=== PATIENT | female | born 1965 | race Caucasian/White ===

== ENCOUNTER 2021-04-04 11:10 | Outpatient (REF) | payer BC, SELFPAY ==
[2021-04-04 13:24] LABS: MANUAL DIFF FLAG NO
[2021-04-04 13:29] LABS: Basophils Percent Auto 0.4 % (0-2); Eosinophils Absolute Auto 0.1 X10*3/uL (0.0-0.4); Eosinophils Percent Auto 1.7 % (0-4); Hematocrit 43.5 % (37-47); Hemoglobin 13.8 g/dl (12.0-16.0); Imm Gran Abs Auto 0.01 X10*3/uL (0.00-0.03); Imm Gran Pct Auto 0.2 % (0.0-0.4); Lymphocytes Absolute Auto 1.5 X10*3/uL (1.2-4.9); Mean Corpuscular HGB Conc 31.7 g/dl (31.0-35.0); Mean Corpuscular Hemoglobin 27.9 pg (27.0-33.0); Mean Corpuscular Volume 88.1 fL (80-98); Mean Platelet Volume 11.1 fL (9.4-12.3); Monocytes Absolute Auto 0.3 X10*3/uL (0.1-1.2); Monocytes Percent Auto 6.7 % (2-11); Neutrophils Absolute Auto 2.7 X10*3/uL (2.0-8.3); Platelet Count 182 X10*3/uL (160-400); Red Blood Count 4.94 X10*6/uL (4.20-5.50); Red Cell Distribution Width 15.9 % (11.0-16.0); White Blood Count 4.6 X10*3/uL (4.8-10.8)
[2021-04-04 14:08] LABS: Alanine Aminotransferase 22 U/L (0-31); Albumin Level 3.8 g/dL (3.5-5.0); Alkaline Phosphatase 43 U/L (39-117); Anion Gap 12 (12-20); Aspartate Amino Transferase 21 U/L (5-31); Bilirubin Total 0.7 mg/dL (0.0-1.0); Blood Urea Nitrogen 14 mg/dL (9-16); Calcium 9.3 mg/dL (8.4-10.2); Chloride 105 mmol/L (96-108); Cholesterol 196 mg/dL; Estimated Glomerular Filt Rate > 60; Glucose Fasting 95 mg/dL (60-99); HDL Cholesterol 66 mg/dL; LDL Cholesterol Calculated 113 mg/dl; Magnesium 2.1 mg/dL (1.6-2.6); Potassium 3.9 mmol/L (3.3-5.1); Sodium 142 mmol/L (135-145); Total Protein 6.1 g/dL (6.5-8.0); Triglycerides 89 mg/dL
[2021-04-04 14:16] LABS: Carbon Dioxide 29 mmol/L (22-29)
[2021-04-04 14:31] LABS: Vitamin D 25-OH Total 45.4 ng/mL (>30)
[2021-04-04 14:34] LABS: Vitamin B12 654 pg/mL (200-900)
== END 2021-04-04 11:11 | disposition home or self-care (01) ==
LOC: HO.10HDL 11:10
PROVIDERS: Visit Provider Internal Medicine
DX: E78.00 Pure hypercholesterolemia, unspecified (principal); K21.9 Gastro-esophageal reflux disease without esophagitis; M19.90 Unspecified osteoarthritis, unspecified site; R25.2 Cramp and spasm; Z86.711 Personal history of pulmonary embolism
CPT/HCPCS: 36415; 80053; 80061; 82306; 82607; 83735; 85025

== ENCOUNTER → 2021-05-31 07:14 | Outpatient (REF) | payer BC, SELFPAY ==
--- NOTE | 2021-05-31 07:18 | CA_ITS ---
Transthoracic Echocardiogram Patient (Last, First, Middle): Oumou Main N Gender: Female Date of : 1965 Age: 55 Procedure Date: 05/31/2021 Procedure Type: Transthoracic Echocardiogram Location: OP Height: 170.18 cm Weight: 83.92 kg BSA: 1.96 m2 Heart Rate: bpm BP: 130 / 62 mmHg Table Games Dealer: PAIGE Referring MD: Casey Lee MD Hat Blocking Machine Operator: Alejandro Kuo MD Symptoms: CP, PERSONAL HX. OF PULMONARY EMBOLISM Study Quality: Fair ECG Rhythm: Sinus Conclusions: - 1. Normal LV systolic function with impaired relaxation filling pattern 2. Normal cardiac valvular Doppler 3. Normal RV systolic pressure 4. No pericardial effusion Findings Left Ventricle Normal left ventricular size, thickness, and systolic function. The visually estimated ejection fraction is between 60-65%. Spectral Doppler is indicative of an impaired relaxation filling pattern. E/E prime ratio is between 8 and 15 consistent with indeterminate filling pressures. Right Ventricle Normal right ventricular cavity size and systolic function. Atria Both atria are normal in size. There is lipomatous hypertrophy of the interatrial septum. There is no evidence of interatrial shunt. Aortic Valve Normal aortic valve structure and function. There is no aortic valve stenosis. There is no aortic valve regurgitation. Mitral Valve Normal mitral valve structure and function. There is trace mitral valve regurgitation. There is no mitral valve stenosis. Pulmonic Valve The pulmonic valve is likely normal. Tricuspid Valve Normal tricuspid valve structure. There is trace tricuspid valve regurgitation. The right ventricular systolic pressure is normal. The right ventricular systolic pressure is 16 mmHg. Normal right atrial pressure. There is no evidence of pulmonary hypertension. Great Vessels All visible segments of the aorta are normal in size. The pulmonary artery was not well visualized. Venous The inferior vena cava is normal in size and collapses greater than 50% with inspiration. Pericardium/Pleural There is no evidence of pericardial effusion. Prior Study Comparison No previous study in the last 5 years for comparison Measurements 2D Linear Measurements IVSd: 1.03 0.6-0.9/0.6-1.0 cm LVIDd: 3.50 3.9-5.3/4.2-5.9 cm LVIDd Index: 1.79 2.4-3.2/2.2-3.1 cm/m2 LVIDs: 2.34 2.0-3.6 cm LVPWd: 1.05 0.7-1.1 cm Ao Root: 3.50 2.1-3.5 cm LA Diam: 2.70 2.7-3.8/3.0-4.0 cm LAIDs Index: 1.38 1.5-2.3 cm/m2 LV Mass: 136.10 67-162/88-224 g LV Mass Index: 69.44 43-95/49-115 g/m2 LVOT Diam: 2.20 3.0+(-)1.3 cm 2D Systolic Function EF 4C: 63.10 >55% EF 2C: 58.20 >55% EF BiP: 60.40 >55% Mitral Valve MV Pk E: 0.65 MV PK A: 0.72 MV Decel Time: 303.00 E/A: 0.90 E'Lateral: 7.29 E'Medial: 6.31 E/E' Med: 10.30 E/E' Lat: 8.90 PHT: 89.00 MVA PHT: 2.[address] [place]: 2.14 Aortic Valve AoV Pk Izaiah: 1.11 AoV Mn Izaiah: 0.80 AoV VTI: 0.25 AoV Pk Grad: 5.00 Aov Mn Grad: 3.00 REJI Cont.VTI: 2.96 LVOT LVOT Pk Izaiah: 0.77 LVOT Mn Izaiah: 0.54 LVOT VTI: 0.19 LVOT Pk Grad: 2.00 LVOT Mn Grad: 1.00 LVOT Diam: 2.20 LVOT Area: 3.80 Diastolic Function MV Pk E: 0.65 MV Pk A: 0.72 E/A: 0.90 E'Medial: 6.31 E/E' Med: 10.30 E' Laterial: 7.29 E/E' Lat: 8.90 Tricuspid Valve TR Pk Izaiah: 1.79 TR Pk Grad: 13.00 RA Press: 3.00 RVSP: 16.00 Great Vessels Aorta Ao Root-2D: 3.50 2.0-3.7 cm Ao Asc: 3.30 2.1-3.4 cm Ao Arch: 3.10 Updated in Other Vendor System with Status of Final Alejandro Kuo MD electronically signed on 05/31/2021 11:42:23 AM with status of Final
== END ==
LOC: HO.CARD 07:14
PROVIDERS: Visit Provider Internal Medicine
DX: R07.89 Other chest pain (principal); Z86.711 Personal history of pulmonary embolism
CPT/HCPCS: 93306

== ENCOUNTER 2021-08-02 07:23 | Outpatient (REF) | payer BC, SELFPAY ==
--- NOTE | ~2021-08-02 | MM_ITS ---
EXAMINATION: MM SCREENING DIGITAL BREAST TOMOSYNTHESIS, BILATERAL CLINICAL INFORMATION: Screening. Asymptomatic. The lifetime risk of breast cancer based on the Tyrer-Cuzick Model is 7%. COMPARISON: Mammography: 07/27/2020, 09/05/2018, 06/26/2017 TECHNIQUE: Digital breast tomosynthesis is performed in both the craniocaudal and mediolateral oblique views along with computer-aided detection (CAD). Synthesized 2D images are generated from the tomosynthesis. FINDINGS: There are scattered areas of fibroglandular density (ACR BI-RADS breast composition Category b). There are no significant masses, abnormal calcifications, or other abnormalities. Parenchymal pattern is similar to prior exams. No developing density. The axilla and skin contours are unremarkable. MM/MM tomosynthesis screening BI IMPRESSION: No mammographic evidence of malignancy. ASSESSMENT: BI-RADS 1: Negative RECOMMENDATION: Routine annual mammography screening. This patient's information was entered into a reminder system with a target due date for their next mammogram.
== END 2021-08-02 07:24 | disposition home or self-care (01) ==
LOC: HO.MAMMO 07:23
PROVIDERS: PCP Internal Medicine; Visit Provider Internal Medicine
DX: Z12.31 Encounter for screening mammogram for malignant neoplasm of breast (principal)
CPT/HCPCS: 77063; 77067

== ENCOUNTER 2021-08-15 06:27 | Day surgery (SDC) | payer BC, SELFPAY ==
[2021-08-10 11:40] VITALS: BMI 29.9
--- NOTE | 2021-08-14 09:30 | P.CONAN_ITS ---
Documented by User: Alea Rabago NP 08/14/21 09:31 HPI - Anesthesia Eval Consult details Narrative: 55yo F for Upper Endoscopy and Colonoscopy [facility] Past Medical History Medical History (Updated 08/10/21 @ 11:35 by Lesvia Oliveira RN) [place] esophagus DVT (deep venous thrombosis) Elevated cholesterol GERD (gastroesophageal reflux disease) Hiatal hernia Osteoarthritis Pulmonary embolus Rosacea Surgical History Surgical History (Updated 08/10/21 @ 11:30 by Lesvia Oliveira RN) H/O colonoscopy History of esophagogastroduodenoscopy (EGD) History of partial hysterectomy Hx of abdominal surgery Hx of section Hx of laparoscopic gastric banding Hx of rectal sphincterotomy Hx of reduction mammoplasty Hx of umbilical hernia repair S/P insertion of IVC (inferior vena caval) filter Social History Social History Patient Tobacco Use Status: Tobacco use Unknown Advance Directives Information Provided: No Advance Directives on File: No Meds Allergies Allergy/AdvReac Type Severity Reaction Status Date / Time hydrocodone [From Vicodin] AdvReac Mild VOMITING Unverified 08/03/20 17:03 oxycodone [From Percocet] AdvReac Mild VOMITING Unverified 08/03/20 17:03 Home Medications Medication Instructions Recorded Confirmed Last Taken Type aspirin 81 mg tablet 81 mg PO DAILY 08/10/21 08/10/21 Unknown History doxycycline hyclate 50 mg capsule 1 cap PO DAILY 08/10/21 08/10/21 Unknown History esomeprazole magnesium 40 mg 1 cap PO DAILY 08/10/21 08/10/21 Unknown History capsule,delayed release hyoscyamine sulfate 0.125 mg tablet 0.25 mg PO QID PRN 08/10/21 08/10/21 Unknown History multivitamin 1 tab PO DAILY 08/10/21 08/10/21 Unknown History simvastatin 20 mg tablet 1 tab PO DAILY 08/10/21 08/10/21 Unknown History pregabalin 50 mg capsule 1 cap PO BID 08/15/21 08/15/21 Unknown History Exam Exam Date and Time: August 14, 2021 0930 Height,Weight and Vital Signs: Height 5 ft 6.5 in Weight 85.275 kg Pertinent Lab Results Pertinent Lab Results: Laboratory Tests 04/04/21 04/04/21 11:25 11:25 WBC 4.6 L Hgb 13.8 Hct 43.5 Plt Count 182 Sodium 142 Potassium 3.9 Chloride 105 Carbon Dioxide 29 BUN 14 Creatinine 0.88 Narrative Narrative: ECHO 05/2021 Conclusions: -? 1. Normal LV systolic function with impaired relaxation ? ? ? filling pattern? 2. Normal cardiac valvular Doppler ? 3. Normal RV systolic pressure ? 4. No pericardial effusion ?? Assessment and Plan Assessment Anesthesia Assessment: Chart Reviewed Documented by User: Sebas Pizarro MD 08/15/21 06:53 PMFSH Past Medical History Medical History (Updated 08/10/21 @ 11:35 by Lesvia Oliveira RN) [place] esophagus DVT (deep venous thrombosis) Elevated cholesterol GERD (gastroesophageal reflux disease) Hiatal hernia Osteoarthritis Pulmonary embolus Rosacea Family History Family history of problems with anesthesia: No Surgical History Surgical History (Updated 08/10/21 @ 11:30 by Lesvia Oliveira RN) H/O colonoscopy History of esophagogastroduodenoscopy (EGD) History of partial hysterectomy Hx of abdominal surgery Hx of section Hx of laparoscopic gastric banding Hx of rectal sphincterotomy Hx of reduction mammoplasty Hx of umbilical hernia repair S/P insertion of IVC (inferior vena caval) filter History of Problems with Anesthesia: No Social History Social History Patient Tobacco Use Status: Tobacco use Unknown Advance Directives Information Provided: No Advance Directives on File: No Meds Allergies Allergy/AdvReac Type Severity Reaction Status Date / Time hydrocodone [From Vicodin] AdvReac Mild VOMITING Unverified 08/03/20 17:03 oxycodone [From Percocet] AdvReac Mild VOMITING Unverified 08/03/20 17:03 Home Medications Medication Instructions Recorded Confirmed Last Taken Type aspirin 81 mg tablet 81 mg PO DAILY 08/10/21 08/10/21 Unknown History doxycycline hyclate 50 mg capsule 1 cap PO DAILY 08/10/21 08/10/21 Unknown History esomeprazole magnesium 40 mg 1 cap PO DAILY 08/10/21 08/10/21 Unknown History capsule,delayed release hyoscyamine sulfate 0.125 mg tablet 0.25 mg PO QID PRN 08/10/21 08/10/21 Unknown History multivitamin 1 tab PO DAILY 08/10/21 08/10/21 Unknown History simvastatin 20 mg tablet 1 tab PO DAILY 08/10/21 08/10/21 Unknown History pregabalin 50 mg capsule 1 cap PO BID 08/15/21 08/15/21 Unknown History Exam Airway Mallampati Class: II TM Dist: >3cm Neck ROM: Full Loose/Missing/Broken Teeth: Yes Heart: [id number] Lungs: cta b/l Assessment and Plan Assessment Anesthesia Assessment: Anesthesia Plan Discussed and Chart Reviewed Final Anesthetic Review Family History of Problems with Anesthesia: No History of Problems with Anesthesia: No NPO: Yes ASA Class: II Final Preanesthetic Review: No Changes in Pt Med Stat, Meds/Allgs Chart Reviewed, Consent Obtained/Reviewed and Anes Risks/Benef Reviewed Patient Risk: Intermediate Procedure Risk: Low Assessment/Block/Sedation in SS: Assess/Block/Sedation-SS Anesthetic Plan Anesthetic Plan: MAC: and Agree w/ Assess. and Plan Disposition: Standard PACU
[2021-08-15 06:47] VITALS: BP 143/82; PULSE 92; RESP 16; TEMP 37.3; O2SAT 99
[2021-08-15] MEDS: Lactated Ringers 1,000 ML 100 ML IVCONT (07:04)
[2021-08-15 08:27] VITALS: BP 134/79; PULSE 87; RESP 16; TEMP 36.2; O2SAT 96
--- NOTE | 2021-08-15 08:33 | P.BOP_ITS ---
Brief Operative Note Date of Service: 08/15/21 Pre-op diagnosis: GERD, Screening Post-op diagnosis: other (Hiatal hernia, Gastric polyps, Diverticulosis) Procedure: EGD with biopsies, Colonoscopy to the cecum and TI Surgeon: Yariel Hilliard Anesthesia: MAC Was an Compressed Yeast Supervisor used for this Procedure?: No Estimated blood loss (mL): 3.0 Pathology: other (A. EG Junction at 30cm B. Gastric polyps) Condition: stable Disposition: PACU
[2021-08-15 08:42] VITALS: BP 123/76; PULSE 73; RESP 16; TEMP 36.2; O2SAT 99
--- NOTE | 2021-08-15 18:15 | OP_ITS ---
SURGEON: Yariel Hilliard MD INDICATIONS: The patient presents for evaluation of gastroesophageal reflux, history of Madrid's esophagus, chest discomfort, and colorectal cancer screening. Full consent has been obtained from her for this, including risks of bleeding and perforation. PREOPERATIVE DIAGNOSIS: POSTOPERATIVE DIAGNOSIS: PROCEDURE PERFORMED: Esophagogastroduodenoscopy with biopsies, and colonoscopy to the cecum and terminal ileum. ESTIMATED BLOOD LOSS: COMPLICATIONS: ANESTHESIA: Monitored anesthesia care. ASSISTANTS: SPECIMENS: PREOPERATIVE DIAGNOSES: Gastroesophageal reflux, Madrid's esophagus, chest discomfort, colorectal cancer screening. POSTOPERATIVE DIAGNOSES: Gastroesophageal reflux, Madrid's esophagus, chest discomfort, colorectal cancer screening, large hiatal hernia, question of paraesophageal hernia, gastric polyps, diverticulosis, and internal hemorrhoids. DESCRIPTION OF PROCEDURE: The patient was placed in the left lateral decubitus position. The Olympus video gastroscope was passed in the posterior oropharynx and upper esophagus under direct vision. The scope was passed slowly into the distal esophagus. The gastroesophageal junction appeared at 30 cm. There was a very minimal irregularity, but no esophagitis nor any definitive evidence of Madrid's mucosa. There was a large hiatal hernia. There were multiple gastric polyps in the proximal portion of the stomach. The scope was advanced to pylorus and the duodenum was cannulated to the descending portion. The duodenum including the bulb appeared normal without mass or ulceration. The scope was withdrawn back into the stomach. The gastric antrum and body appeared normal with good peristalsis. The scope was retroflexed visualizing the proximal stomach carefully, which appeared normal, without any sign of mass or ulceration, other than multiple hyperplastic appearing gastric polyps. Several of these were biopsied. Also in the retroflexed position, was what appeared to be evidence of a possible paraesophageal component of a hiatal hernia with evidence of a lumen with gastric mucosa extending to possibly above the diaphragmatic indentation. The scope was straightened. Biopsies were obtained at the EG junction at 30 cm. Proximal to this, esophageal mucosa appeared normal. The scope was withdrawn from the patient. She was turned around for colonoscopy. The digital rectal exam revealed no abnormalities. The Olympus video pediatric colonoscope was entered into the rectum and advanced to the cecum with the assistance of abdominal wall pressure. Once in the cecum, I did identify normal-appearing cecal pouch with appendiceal orifice and a normal-appearing ileocecal valve. The terminal ileum was cannulated and appeared normal. The scope was withdrawn back in the colon. The entire cecum and ileocecal valve appeared normal. The scope was slowly withdrawn assessing all mucosal surfaces carefully. Preparation was excellent. I did not visualize any sign of polyps, colitis, nor angiodysplasia. There was a mild amount of sigmoid diverticulosis. In the rectum, scope was retroflexed visualizing small internal hemorrhoids, but no other pathology. The rectal mucosa appeared normal. Scope was straightened out and withdrawn from the patient. She tolerated both procedures well and was returned to the recovery area in stable condition. IMPRESSION: 1. Large hiatal hernia, rule out paraesophageal hernia. 2. Gastric polyps. 3. History of Madrid's esophagus. 4. Diverticulosis. 5. Small internal hemorrhoids. PLAN: The results of the biopsy will be checked. At this point given the minimal upper endoscopy findings in regard to any potential Madrid's esophagus, I do not think she will need any further upper endoscopies. I shall order a barium swallow and upper GI series to further assess for the possibility of a paraesophageal hernia that might be causing some of her intermittent chest discomfort. I would recommend a repeat colonoscopy in 10 years for further screening. Of note, her past history is notable for a gastric stapling with a vertical band gastroplasty and this might be causing the findings I saw today, but I shall obtain the barium swallow and upper GI series anyway to further assess things. MD CIRO Salazar/ANUEL / [id number]
== END 2021-08-15 09:12 | disposition home or self-care (01) ==
PROVIDERS: PCP Internal Medicine; Visit Provider Internal Medicine
PROC: (CPT 45378; principal; 2021-08-15 07:30)
DX: Z12.11 Encounter for screening for malignant neoplasm of colon (principal); K57.30 Diverticulosis of large intestine without perforation or abscess without bleeding; K64.8 Other hemorrhoids; K21.9 Gastro-esophageal reflux disease without esophagitis; K31.7 Polyp of stomach and duodenum; K44.9 Diaphragmatic hernia without obstruction or gangrene; Z87.19 Personal history of other diseases of the digestive system; Z86.718 Personal history of other venous thrombosis and embolism; Z79.82 Long term (current) use of aspirin; Z79.899 Other long term (current) drug therapy
CPT/HCPCS: 45378; 43239; 88305; 88342; J1200; J2405

== ENCOUNTER 2021-10-04 08:18 | Outpatient (REF) | payer BC, SELFPAY ==
--- NOTE | ~2021-10-04 | FL_ITS ---
EXAMINATION: FL AIR-CONTRAST UPPER GI EXAMINATION CLINICAL INFORMATION: GERD without esophagitis. COMPARISON: 06/12/2009 TECHNIQUE: Air-contrast upper GI examination. FINDINGS: There is normal apposition of the vocal cords while saying E. There is normal elevation of the soft palate saying candy. Patient swallowed thin and thick barium and half-inch diameter barium tablet during the study. No nasopharyngeal reflux or tracheal aspiration. No cricopharyngeal hypertrophy or Zenker's diverticulum. Inferior vena cava filter is seen. Patient status post previous gastric surgery with surgical clips noted and no definite evidence of a suture line breakdown. There is esophageal hypomotility present. It is difficult to evaluate for reflux since the hiatal hernia does not readily empty of contrast. No mucosal abnormality of the esophagus identified. There does now appear to be a paraesophageal component to the hiatal hernia. The half-inch diameter barium tablet lodges at the surgical site of narrowing. There are prominent rugal folds seen within the stomach. No suspicious persistent stricture identified. There is the appearance of some target lesions within the stomach which may be related to rugal folds or small diverticulum filling with contrast, however, the possibility of small ulcers would be less likely without adjacent edematous change and distortion. There is no delay in gastric emptying. The duodenal bulb and sweep appeared unremarkable. FL/FL upper GI w air w Ba Swallow IMPRESSION: Hiatal hernia with question paraseptal component. Half-inch diameter barium tablet lodges at surgical site. I do not definitely see surgical line breakdown. Fluoroscopy time: 3.0 minutes DAP: 24.895 liu centimeter squared
== END 2021-10-04 08:19 | disposition home or self-care (01) ==
LOC: HO.XRAY 08:18
PROVIDERS: PCP Internal Medicine; Visit Provider Internal Medicine
DX: K21.9 Gastro-esophageal reflux disease without esophagitis (principal)
CPT/HCPCS: 74246

== ENCOUNTER → 2021-10-19 07:49 | Outpatient (BNVA) | payer BC, SELFPAY | PROVIDERS: PCP Internal Medicine; Referring Provider Internal Medicine; Visit Provider Surgery ==

== ENCOUNTER 2021-11-01 06:41 | Outpatient (REF) | payer BC, SELFPAY ==
[2021-11-01 07:46] LABS: Anion Gap 11 (12-20); Blood Urea Nitrogen 19 mg/dL (9-16); Calcium 9.8 mg/dL (8.4-10.2); Carbon Dioxide 28 mmol/L (22-29); Chloride 107 mmol/L (96-108); Estimated Glomerular Filt Rate > 60; Glucose Random 115 mg/dL (60-115); Sodium 142 mmol/L (135-145)
== END 2021-11-01 06:42 | disposition home or self-care (01) ==
LOC: HO.LAB 06:41
PROVIDERS: PCP Internal Medicine; Visit Provider Physician Assistant Surgical
DX: E66.3 Overweight (principal)
CPT/HCPCS: 36415; 80048

== ENCOUNTER 2021-11-05 06:01 | Outpatient (REF) | payer BC, SELFPAY ==
--- NOTE | ~2021-11-05 | CT_ITS ---
EXAMINATION: CT ABDOMEN AND PELVIS WITH CONTRAST CLINICAL INFORMATION: Gastroesophageal reflux COMPARISON: Upper GI series dated 10/04/2021 TECHNIQUE: Multidetector volumetric images were obtained from the superior aspect of the liver through the pubic symphysis following administration 85 mL of Omnipaque 350 intravenous contrast. Sagittal and coronal reformatted images were obtained on the technologist's workstation. Oral contrast: No This CT examination was performed using dose optimization techniques as appropriate, variously including the following: *Automated exposure control *Adjustment of mA and/or kV according to patient size (this includes techniques or standardized protocols for targeted exams where dose is matched to indication/reason for exam; i.e. extremities or head) *Use of iterative reconstruction technique DLP: 538 mGy-cm FINDINGS: LUNG BASES: The visualized lung bases are unremarkable. LIVER, GALLBLADDER, AND BILIARY TREE: The liver is normal in size, shape, and attenuation. There are a few scattered hepatic cysts. No suspicious liver lesion or biliary ductal dilatation is present. Cholelithiasis. No pericholecystic fluid. PANCREAS: Unremarkable. SPLEEN: Unremarkable. ADRENAL GLANDS: Unremarkable. KIDNEYS AND URETERS: The kidneys are normal in size, shape, and attenuation. No hydronephrosis, hydroureter, or calculi seen. No perinephric stranding. BLADDER: Unremarkable. GASTROINTESTINAL TRACT: Postsurgical changes present within the gastric cardia and gastroesophageal junction. There is a moderate sliding-type hiatal hernia. Small bowel unremarkable. Scattered left colonic diverticula. No evidence of diverticulitis. Normal appendix. ABDOMINAL WALL: No significant hernia is appreciated. LYMPH NODES: Normal. VASCULAR: Aorta is mildly atherosclerotic but normal caliber. Patent venous structures. IVC filter present, infrarenal. PELVIC VISCERA: Hysterectomy. No adnexal abnormalities. OSSEOUS STRUCTURES: No acute or suspicious osseous abnormalities. CT/CT abdomen pelvis w con IMPRESSION: * Postoperative changes of the stomach in the gastric cardia region and gastroesophageal junction. Moderate sliding-type hiatal hernia with retention of oral contrast. Contrast is seen however within the remainder of the stomach and small bowel. * Cholelithiasis.
[2021-11-05] MEDS: iohexoL 350 MG/ML 100 ML INFUS..BTL 85 ML IV (09:14)
== END 2021-11-05 06:02 | disposition home or self-care (01) ==
LOC: HO.CT 06:01
PROVIDERS: PCP Internal Medicine; Visit Provider Surgery
DX: K21.9 Gastro-esophageal reflux disease without esophagitis (principal); K44.9 Diaphragmatic hernia without obstruction or gangrene
CPT/HCPCS: 74177; Q9967

== ENCOUNTER 2021-11-06 07:48 | Outpatient (REF) | payer BC, SELFPAY ==
--- NOTE | ~2021-11-06 | US_ITS ---
EXAMINATION: US COMPLETE ABDOMEN WITH LIVER ELASTOGRAPHY CLINICAL INFORMATION: CT of the abdomen and pelvis from yesterday COMPARISON: None. TECHNIQUE: Real-time imaging of the abdominal viscera. Noninvasive ultrasound liver fibrosis assessment is performed using Chhaya ElastPQ point quantification shear wave elastography (pSWE) with a C5-2 MHz transducer. Multiple elastography samples are obtained. FINDINGS: PANCREAS: Not well visualized due to bowel gas. ABDOMINAL AORTA: The proximal abdominal aorta is not well visualized due to bowel gas. The mid and distal abdominal aorta are normal in caliber. INFERIOR VENA CAVA: Not well visualized due to bowel gas. LIVER: Liver echotexture is increased. There are 4 small cysts seen in the liver, largest measuring 1 x 0.6 x 0.9 cm in the left lobe. No biliary duct dilatation. The right lobe measures 17 cm in length. The left lobe measures 8 cm in length. Portal flow is normal/hepatopedal Shear wave liver elastography median stiffness is 1.7 m/s (reference: normal median stiffness is 1.3 m/s or less). IQR/median stiffness to assess sampling precision is 0.11 (reference: good quality data set is IQR/median stiffness of 0.15 or less). GALLBLADDER: Gallstones in the gallbladder. The gallbladder is normal in size. The gallbladder wall is normal. COMMON BILE DUCT: Dilated dilated measuring 0.9 cm in diameter. RIGHT KIDNEY: Normal. No hydronephrosis. No renal calculi or focal parenchymal lesions. The kidney measures 10.4 cm in maximum dimension. LEFT KIDNEY: Normal. No hydronephrosis. No renal calculi or focal parenchymal lesions. The kidney measures 10 cm in maximum dimension. SPLEEN: Normal. The spleen measures 9 cm in maximum dimension. FREE FLUID: None. US/US abdomen comp w elastography IMPRESSION: 1. Impression: Echogenic liver. Multiple small liver cysts. Gallstones. Slightly dilated common bile duct measuring 0.9 cm. Limited visualization of the pancreas, aorta and IVC. 2. Liver elastography: Adequate liver sampling. Borderline elevated liver stiffness. REFERENCE: Society of Radiologists in Ultrasound Liver Stiffness Thresholds (2020): LIVER STIFFNESS THRESHOLDS: *Liver Stiffness equal or less than 1.3 m/s: High probability of being normal. *Liver Stiffness less than 1.7 m/s: In the absence of other known clinical signs, rules out compensated advanced chronic liver disease. *Liver Stiffness 1.7-2.1 m/s: Suggestive of compensated advanced chronic liver disease but need further test for confirmation. *Liver Stiffness over 2.1 m/s: Rules in compensated advanced chronic liver disease. *Liver Stiffness over 2.4 m/s: Suggestive of clinically significant portal hypertension. QUALITY OF DATA SET: *IQR/Median value equal or less than 0.15 implies a quality data set. *IQR/Median value over 0.15 implies a poor quality data set. SIGNIFICANT CHANGE FROM PRIOR EXAM: Significant change if liver stiffness measurement is 10% or greater from prior exam. OTHER CONSIDERATIONS: The stage of liver fibrosis may be overestimated in the setting of acute hepatitis, liver inflammation, elevated liver function tests, hepatic vascular congestion, obstructive cholestasis, non-fasting state, and infiltrative diseases such as amyloidosis and lymphoma. In some patients with NAFLD, the liver stiffness thresholds for compensated advanced chronic liver disease may be lower. In causes other than viral hepatitis and NAFLD, liver stiffness thresholds are not well established.
== END 2021-11-06 07:49 | disposition home or self-care (01) ==
LOC: HO.US 07:48
PROVIDERS: PCP Internal Medicine; Visit Provider Surgery
DX: K21.9 Gastro-esophageal reflux disease without esophagitis (principal); K44.9 Diaphragmatic hernia without obstruction or gangrene
CPT/HCPCS: 76705; 76981

== ENCOUNTER → 2021-11-29 11:14 | Outpatient (BNVA) | payer BC, SELFPAY | PROVIDERS: PCP Internal Medicine; Referring Provider Internal Medicine; Visit Provider Surgery ==

== ENCOUNTER 2022-02-12 05:58 | Outpatient (REF) | payer BC, SELFPAY ==
--- NOTE | ~2022-02-12 | US_ITS ---
EXAMINATION: US ABDOMEN COMPLETE CLINICAL INFORMATION: Abdominal pain.. COMPARISON: Previous abdominal ultrasound October [address] of the abdomen and pelvis October 2021 TECHNIQUE: Real-time imaging of the abdominal viscera. Exam is limited due to overlying bowel gas. FINDINGS: PANCREAS: Not well visualized due to bowel gas ABDOMINAL AORTA: The proximal and mid segments are not well visualized due to bowel gas. The distal aorta is normal in caliber. INFERIOR VENA CAVA: Visualized portions are normal. LIVER: Liver echotexture is increased. There are multiple small cysts. Largest measures 9 x 6 x 10 mm in the left lobe. GALLBLADDER: Gallbladder is contracted as the patient has recently eaten. There are gallstones in the gallbladder. Gallbladder wall is upper normal in thickness measuring 0.3 cm. There is no gallbladder wall edema or pericholecystic fluid. COMMON BILE DUCT: Not well visualized. RIGHT KIDNEY: Normal. No hydronephrosis. No renal calculi or focal parenchymal lesions. The kidney measures 10 cm in maximum dimension. LEFT KIDNEY: Normal. No hydronephrosis. No renal calculi or focal parenchymal lesions. The kidney measures 10.4 cm in maximum dimension. SPLEEN: Normal. The spleen measures 10.2 cm in maximum dimension. FREE FLUID: None. US/US abdomen complete IMPRESSION: Limited exam. Gallstones. Slightly echogenic liver. Small liver cysts.
[2022-02-12 06:14] LABS: MANUAL DIFF FLAG NO
[2022-02-12 07:28] LABS: Basophils Percent Auto 0.8 % (0-2); Eosinophils Absolute Auto 0.2 X10*3/uL (0.0-0.4); Eosinophils Percent Auto 3.7 % (0-4); Hematocrit 43.4 % (37.0-47.0); Hemoglobin 13.7 g/dl (12.0-16.0); Imm Gran Abs Auto 0.01 X10*3/uL (0.00-0.03); Imm Gran Pct Auto 0.2 % (0.0-0.4); Lymphocytes Absolute Auto 1.5 X10*3/uL (1.2-4.9); Lymphocytes Percent Auto 30.3 % (20-40); Mean Corpuscular HGB Conc 31.6 g/dl (31.0-35.0); Mean Corpuscular Hemoglobin 27.5 pg (27.0-33.0); Mean Platelet Volume 11.3 fL (9.4-12.3); Monocytes Absolute Auto 0.4 X10*3/uL (0.1-1.2); Monocytes Percent Auto 8.1 % (2-11); Neutrophils Absolute Auto 2.8 x10*3/uL (2.0-8.3); Neutrophils Percent Auto 56.9 % (45-73); Platelet Count 166 X10*3/uL (160-400); Red Blood Count 4.99 X10*6/uL (4.20-5.50); Red Cell Distribution Width 14.1 % (11.0-16.0); White Blood Count 4.9 X10*3/uL (4.8-10.8)
[2022-02-12 07:55] LABS: Alanine Aminotransferase 19 U/L (0-31); Albumin Level 3.9 g/dL (3.5-5.0); Alkaline Phosphatase 49 U/L (39-117); Anion Gap 10 (12-20); Aspartate Amino Transferase 19 U/L (5-31); Bilirubin Total 0.7 mg/dL (0.0-1.0); Blood Urea Nitrogen 14 mg/dL (9-16); C Reactive Protein 1.15 mg/dL (< or = 0.50); Calcium 9.5 mg/dL (8.4-10.2); Carbon Dioxide 29 mmol/L (22-29); Chloride 106 mmol/L (96-108); Estimated Glomerular Filt Rate > 60; Glucose Random 122 mg/dL (60-115); Sodium 141 mmol/L (135-145); Total Protein 6.3 g/dL (6.5-8.0)
== END 2022-02-12 05:59 | disposition home or self-care (01) ==
LOC: HO.LAB 05:58
PROVIDERS: PCP Internal Medicine; Visit Provider Internal Medicine
DX: R10.0 Acute abdomen (principal)
CPT/HCPCS: 36415; 76700; 80053; 85025; 86140

== ENCOUNTER → 2022-02-18 08:06 | Outpatient (BNVA) | payer BC, SELFPAY | PROVIDERS: PCP Internal Medicine; Visit Provider Surgery | DX: Z13.89 Encounter for screening for other disorder (principal) ==

== ENCOUNTER → 2022-03-13 08:33 | Day surgery (SDC) | payer BC, SELFPAY ==
[2022-03-07 14:22] VITALS: BMI 26.6
--- NOTE | 2022-03-09 00:26 | P.HPSUR_ITS ---
Pre-Procedural Eval Section A Date of Service: 03/09/22 The patient is an INPATIENT: No The History & Physical has been completed within 30 days and I have reviewed it.: Yes Section B Chief Complaint: calculus of gallbladder Relevant Family History (Specify if Yes): No Relevant Social History: None Present Medications: None Medical History: No relevant PMH History of Previous Operations: No relevant previous surgery Allergies: Allergies Allergy/AdvReac Type Severity Reaction Status Date / Time hydrocodone [From Vicodin] AdvReac Mild VOMITING Verified 02/18/22 08:53 oxycodone [From Percocet] AdvReac Mild VOMITING Verified 02/18/22 08:53 Review of Systems Sugical H&P ROS: Negative: Constitution, Cardiovascular, Respiratory, Neurological, Psychiatric, Hem-Onc, Allergic/Immunologic, Gastrointestinal, Gen itourinary, Musculoskeletal, Integumentary, Endocrine and Eyes/Ears/Nose/Throat Exam Surgical H&P Exam: Normal: HEENT, Normal: Heart, Normal: Lungs, Normal: Extremities, Normal: Abdomen, Normal: Skin and Normal: Neurological Plan Diagnosis/Plan: Unchanged I have reviewed the history and physical and performed a pertinent physical examination on my patient. No changes have occurred unless specified.
[2022-03-09 09:22] LABS: MANUAL DIFF FLAG NO
[2022-03-09 09:55] LABS: Basophils Percent Auto 0.7 % (0-2); Eosinophils Absolute Auto 0.1 X10*3/uL (0.0-0.4); Eosinophils Percent Auto 2.7 % (0-4); Hematocrit 44.2 % (37.0-47.0); Imm Gran Abs Auto 0.01 X10*3/uL (0.00-0.03); Imm Gran Pct Auto 0.2 % (0.0-0.4); Lymphocytes Absolute Auto 1.6 X10*3/uL (1.2-4.9); Lymphocytes Percent Auto 38.7 % (20-40); Mean Corpuscular HGB Conc 31.7 g/dl (31.0-35.0); Mean Corpuscular Hemoglobin 27.1 pg (27.0-33.0); Mean Corpuscular Volume 85.7 fL (80.0-98.0); Mean Platelet Volume 11.3 fL (9.4-12.3); Monocytes Absolute Auto 0.3 X10*3/uL (0.1-1.2); Monocytes Percent Auto 6.9 % (2-11); Neutrophils Percent Auto 50.8 % (45-73); Platelet Count 177 X10*3/uL (160-400); Red Blood Count 5.16 X10*6/uL (4.20-5.50); Red Cell Distribution Width 14.2 % (11.0-16.0)
[2022-03-09 10:02] LABS: INTERNATIONAL NORM RATIO 0.9 (0.9-1.1); Prothrombin Time 10.4 SEC (9.9-13.0)
[2022-03-09 10:04] LABS: Partial Thromboplastin Time 35.4 SEC (24.1-38.0)
[2022-03-09 10:22] LABS: Alanine Aminotransferase 21 U/L (0-31); Alkaline Phosphatase 51 U/L (39-117); Anion Gap 8 (12-20); Aspartate Amino Transferase 25 U/L (5-31); Bilirubin Total 0.6 mg/dL (0.0-1.0); Blood Urea Nitrogen 17 mg/dL (9-16); C Reactive Protein 0.11 mg/dL (< or = 0.50); Calcium 9.6 mg/dL (8.4-10.2); Carbon Dioxide 31 mmol/L (22-29); Chloride 106 mmol/L (96-108); Cholesterol 192 mg/dL; Creatinine Clr Calc Pharmacy 77.8; Estimated Glomerular Filt Rate > 60; Glucose Random 98 mg/dL (60-115); HDL Cholesterol 58 mg/dL; LDL Cholesterol Calculated 120 mg/dl; Potassium 3.9 mmol/L (3.3-5.1); Sodium 141 mmol/L (135-145); Total Protein 6.4 g/dL (6.5-8.0); Triglycerides 73 mg/dL
[2022-03-09 10:37] LABS: Estimated Average Glucose 120 mg/dL; Hemoglobin A1c % 5.8 %
[2022-03-09 10:53] LABS: TSH reflex Free T4 2.55 uIU/mL (0.32-4.0)
[2022-03-09 11:23] LABS: Insulin 6 uU/mL (2-29)
[2022-03-13] VITALS (10 sets, daily range): BP systolic 121–145; BP diastolic 70–92; PULSE 67–91; RESP 10–16; TEMP 36.1–37.1; O2SAT 94–100
[2022-03-13] MEDS: Lactated Ringers 1,000 ML 100 ML IVCONT (09:07)
--- NOTE | 2022-03-13 10:23 | HO.ANESPROP2 ---
ON LICENSE OF [facility] Active Problems Active Problems: All Active Problems (Updated 02/18/22 @ 09:03 by Jose Pillai MD) Overweight (Acute) Cholelithiasis (Acute) GERD (gastroesophageal reflux disease) (Acute) Hiatal hernia (Acute) Past Medical History Medical History (Updated 02/18/22 @ 09:03 by Jose Pillai MD) [place] esophagus DVT (deep venous thrombosis) Elevated cholesterol GERD (gastroesophageal reflux disease) Hiatal hernia Osteoarthritis Pulmonary embolus Rosacea Family History Family History Mother Diabetes Hypertension Thyroid condition Father No problems noted. Brother No problems noted. Brother Diabetes Gout Brother No problems noted. Sister Pancreatic cancer Sister Colitis Family history of problems with anesthesia: No Surgical History Surgical History (Updated 03/07/22 @ 14:11 by Lesvia Oliveira RN) H/O colonoscopy History of esophagogastroduodenoscopy (EGD) History of partial hysterectomy Hx of abdominal surgery Hx of section Hx of laparoscopic gastric banding Hx of rectal sphincterotomy Hx of reduction mammoplasty Hx of umbilical hernia repair S/P insertion of IVC (inferior vena caval) filter History of Problems with Anesthesia: No Social History Social History Alcohol intake: current Alcohol intake frequency: holidays/special occasions only Patient Tobacco Use Status: Never used Tobacco Advance Directives: Yes Advance Directives Information Provided: Yes Advance Directives on File: Yes Advance Directives Date on File: 02/23/16 Meds Allergies Allergy/AdvReac Type Severity Reaction Status Date / Time hydrocodone [From Vicodin] AdvReac Mild VOMITING Verified 03/13/22 08:41 oxycodone [From Percocet] AdvReac Mild VOMITING Verified 03/13/22 08:41 Home Medications Medication Instructions Recorded Confirmed Last Taken Type aspirin 81 mg tablet 81 mg PO DAILY 08/10/21 03/13/22 03/02/22 History multivitamin 1 tab PO DAILY 08/10/21 03/07/22 Unknown History simvastatin 20 mg tablet 1 tab PO DAILY 08/10/21 03/07/22 Unknown History azelaic acid 15 % topical gel 1 appl TOPICAL BID 10/19/21 03/07/22 Unknown History (Finacea) biotin 5,000 mcg sublingual tablet 5,000 mcg SUBLINGUAL DAILY 10/19/21 03/07/22 Unknown History esomeprazole magnesium 40 mg 40 mg PO DAILY 10/19/21 03/13/22 03/13/22 06:30 History capsule,delayed release (Nexium) loratadine 10 mg tablet 10 mg PO DAILY 10/19/21 03/07/22 Unknown History (Allerclear) magnesium oxide 400 mg PO DAILY 10/19/21 03/07/22 Unknown History melatonin 10 mg tablet 10 mg PO BEDTIME PRN 10/19/21 03/07/22 Unknown History polyethylene glycol 3350 17 17 g PO DAILY 10/19/21 03/07/22 Unknown History gram/dose oral powder (Miralax) Exam Exam Date and Time: March 13, 2022 1023 Height,Weight and Vital Signs: Height 5 ft 6.5 in Weight 75.863 kg Last Vital Signs Temp 97.0 F 03/13/22 08:54 Pulse 74 03/13/22 08:54 Resp 16 03/13/22 08:54 BP 145/92 H 03/13/22 08:54 Pulse Ox 99 03/13/22 08:54 Pertinent Lab Results Pertinent Lab Results: Laboratory Tests 03/09/22 03/09/22 03/09/22 09:17 09:20 09:20 WBC 4.0 L RBC 5.16 Hgb 14.0 Hct 44.2 MCV 85.7 MCH 27.1 MCHC 31.7 RDW 14.2 Plt Count 177 MPV 11.3 Immature Gran % (Auto) 0.2 Neut % (Auto) 50.8 Lymph % (Auto) 38.7 Imperial % (Auto) 6.9 Eos % (Auto) 2.7 Baso % (Auto) 0.7 Lymph # (Auto) 1.6 Imperial # (Auto) 0.3 Eos # (Auto) 0.1 Baso # (Auto) 0.0 Abs Immat Gran (auto) 0.01 Absolute Neuts (auto) 2.0 Absolute Nucleated RBC 0.000 Nucleated RBC % (auto) 0.0 PT 10.4 INR 0.9 APTT 35.4 Sodium Potassium Chloride Carbon Dioxide Anion Gap BUN Creatinine Estim Creat Clear Calc Estimated GFR Random Glucose Estimat Average Glucose Hemoglobin A1c % Insulin Level Calcium Total Bilirubin AST ALT Alkaline Phosphatase C-Reactive Protein Total Protein Albumin Triglycerides Cholesterol LDL Cholesterol, Calc HDL Cholesterol TSH Blood Type AB Positive Antibody Screen NEGATIVE 03/09/22 03/09/22 09:20 09:20 WBC RBC Hgb Hct MCV MCH MCHC RDW Plt Count MPV Immature Gran % (Auto) Neut % (Auto) Lymph % (Auto) Imperial % (Auto) Eos % (Auto) Baso % (Auto) Lymph # (Auto) Imperial # (Auto) Eos # (Auto) Baso # (Auto) Abs Immat Gran (auto) Absolute Neuts (auto) Absolute Nucleated RBC Nucleated RBC % (auto) PT INR APTT Sodium 141 Potassium 3.9 Chloride 106 Carbon Dioxide 31 H Anion Gap 8 L BUN 17 H Creatinine 0.82 Estim Creat Clear Calc 77.8 Estimated GFR > 60 Random Glucose 98 Estimat Average Glucose 120 Hemoglobin A1c % 5.8 Insulin Level 6 Calcium 9.6 Total Bilirubin 0.6 AST 25 ALT 21 Alkaline Phosphatase 51 C-Reactive Protein 0.11 Total Protein 6.4 L Albumin 4.0 Triglycerides 73 Cholesterol 192 LDL Cholesterol, Calc 120 HDL Cholesterol 58 TSH 2.55 Blood Type Antibody Screen Airway Mallampati Class: I TM Dist: >3cm Neck ROM: Full Assessment and Plan Assessment Anesthesia Assessment: Anesthesia Plan Discussed and Chart Reviewed Final Anesthetic Review Family History of Problems with Anesthesia: No History of Problems with Anesthesia: No NPO: Yes ASA Class: II Final Preanesthetic Review: No Changes in Pt Med Stat, Meds/Allgs Chart Reviewed, Consent Obtained/Reviewed and Anes Risks/Benef Reviewed Patient Risk: Intermediate Procedure Risk: Intermediate Anesthetic Plan Anesthetic Plan: GA Disposition: Standard PACU
--- NOTE | 2022-03-13 10:46 | PM.OP ---
Brief Operative Note Date of Service: 03/13/22 Pre-op diagnosis: Symptomatic cholelithiasis, s/p Vertical banded gastroplasty Post-op diagnosis: same (& abdominal adhesions) Procedure: PROCEDURE DATE: 03/13/2022 PREOPERATIVE DIAGNOSIS: Symptomatic cholelithiasis, and comorbidities including GERD, diaphragmatic hernia, hyperlipidemia, DJD, liver steatosis, liver fibrosis POSTOPERATIVE DIAGNOSIS: Same as above. PROCEDURE: Laparoscopic cholecystectomy Surgeon: Franky Pillai M.D., Ph.D. Outpatient Program Coordinator: Suzanna Nelson Anesthesia: General endotracheal anesthesia Estimated blood loss: Minimal FINDINGS AND PROCEDURE: OPERATIVE INDICATIONS: The patient is a 56 year old female known to me who was initially seen in my office for evaluation for a diaphragmatic hernia. During the preoperative workup, the patient was found to have cholelithiasis which appears to be symptomatic. I recommended cholecystectomy. Risks and complications of the surgery were discussed with the patient in advance, particularly the postoperative bleeding, infection, DVT or PE, bile leak, major bile duct injury that may require additional surgical intervention, cardiac, pulmonary or renal complications among others. The patient understood the risks and was in agreement with the plan. PROCEDURE: After informed consent was obtained by the patient, the patient was transferred to the Operating Room and was placed in the supine position. The patient was given preoperative antibiotics and after successful induction of general anesthesia pneumatic compression devices were placed. The patient was then prepped and draped in the usual sterile manner and abdominal access was established with the Veress needle at the right upper quadrant. The abdomen was insufflated with C02 to a pressure of 15 mmHg. We inspected the area where the needle had been placed and there was no injury. The patient was then placed initially in a steep reverse Trendelenburg position and three additional ports were placed, specifically a 12 mm [place] port just to the right of the midline below the xiphoid process and two 5 mm Versi-step ports at the right upper quadrant and one sligtly superior and to the right of the umbilicus. At that point the patient was placed in a steep reverse Trendelenburg position tilted to the left side. The gallbladder was retracted cephalad and laterally. There were adhesions between the omentum and the abdominal wall from previous VBG but they did not interfere with our procedure and were left untouched. The peritoneal attachments of the gallbladder at the triangle of Calot posteriorly and anteriorly were taken down. The cystic duct and artery were both seen. They were completely dissected free, skeletonized all the way to the infundibulum of the gallbladder. In a similar fashion we also cleaned the liver bed just behind the cystic artery to make sure there was no additional structures in this area. Once we confirmed that both structures were entering into the gallbladder and there were no other structures in the area, they were both clipped with two clips proximally, one distally and were cut in- between. We then using the electrocautery we slowly took down the gallbladder from the liver bed. Small areas of bleeding from the liver parenchyma were controlled with the cautery. After the gallbladder was completely detached from the liver bed, it was placed in an EndoCatch bag and was removed without difficulty from the xiphoid port. We then inspected the clips at the cystic duct and artery and were both in place. There was no active bleeding from the liver bed. At that point the patient was placed in supine position, we deflated the abdomen and we removed all ports under direct vision and no bleeding was noted from any of the port sites. The fascia of the 12 mm port was closed using a #1 Polysorb suture. 60cc 0.5% Marcaine and 1% Lidocaine plain were used to infiltrate the fascial closure as well as all skin incisions. The wounds were irrigated with saline mixed with antibiotic solution and then the skin was closed with 4-0 Monocryl subcuticular sutures antibiotic-coated. Steri-strips and OpSites were used to cover all incisions. The patient extubated and was transferred in stable condition to the Recovery Room for further care. I was present and performed all steps of the procedure. Ms. Calzada was the assistant paralegal. There were no residents to assist with this case. Franky Pillai M.D., Ph.D., F.A.C.S. Surgeon: Jose Pillai MD Anesthesia: GETA, local and other Was an Outpatient Program Coordinator used for this Procedure?: No Outpatient Program Coordinator: Suzanna Calzada Estimated blood loss (mL): 10 IV fluids (mL): 2,000 Urine output (mL): 0 (No Bajwa to gravity) Pathology: other (Gallbladder) Condition: stable Disposition: PACU
== END | disposition home or self-care (01) ==
PROVIDERS: PCP Internal Medicine; Visit Provider Surgery
PROC: 0FT44ZZ Resection of Gallbladder, Percutaneous Endoscopic Approach (ICD-10-PCS; CPT 47562; principal; 2022-03-13 10:10)
DX: K80.10 Calculus of gallbladder with chronic cholecystitis without obstruction (principal); K82.8 Other specified diseases of gallbladder; K44.9 Diaphragmatic hernia without obstruction or gangrene; K21.9 Gastro-esophageal reflux disease without esophagitis; E66.3 Overweight; Z68.26 Body mass index [BMI] 26.0-26.9, adult; E78.00 Pure hypercholesterolemia, unspecified; L71.9 Rosacea, unspecified; Z79.82 Long term (current) use of aspirin; Z79.899 Other long term (current) drug therapy; Z88.8 Allergy status to other drugs, medicaments and biological substances; Z95.828 Presence of other vascular implants and grafts; Z86.718 Personal history of other venous thrombosis and embolism; Z86.711 Personal history of pulmonary embolism; Z87.19 Personal history of other diseases of the digestive system; Z98.890 Other specified postprocedural states
CPT/HCPCS: 47562; 36415; 80053; 80061; 83036; 83525; 84443; 85025; 85610; 85730; 86140; 86850; 86900; 86901; 88304; C9399; J0131; J0690; J1100; J2250; J2405; J3010

== ENCOUNTER → 2022-03-15 12:49 | Outpatient (BNVA) | payer BC, SELFPAY | PROVIDERS: PCP Internal Medicine; Visit Provider Advanced Practice Midwife | DX: Z13.89 Encounter for screening for other disorder (principal) ==

== ENCOUNTER → 2022-03-28 08:53 | Outpatient (BNVA) | payer BC, SELFPAY | PROVIDERS: PCP Internal Medicine; Referring Provider Internal Medicine; Visit Provider Physician Assistant | DX: E66.3 Overweight (principal) ==

== ENCOUNTER 2022-05-16 06:47 | Outpatient (REF) | payer BC, SELFPAY ==
[2022-05-16 06:57] LABS: MANUAL DIFF FLAG NO
[2022-05-16 08:51] LABS: Basophils Absolute Auto 0.1 X10*3/uL (0.0-0.2); Eosinophils Absolute Auto 0.1 X10*3/uL (0.0-0.4); Eosinophils Percent Auto 1.2 % (0-4); Hematocrit 43.9 % (37.0-47.0); Hemoglobin 13.8 g/dl (12.0-16.0); Imm Gran Abs Auto 0.01 X10*3/uL (0.00-0.03); Imm Gran Pct Auto 0.2 % (0.0-0.4); Lymphocytes Absolute Auto 1.7 X10*3/uL (1.2-4.9); Lymphocytes Percent Auto 33.9 % (20-40); Mean Corpuscular HGB Conc 31.4 g/dl (31.0-35.0); Mean Corpuscular Hemoglobin 27.2 pg (27.0-33.0); Mean Corpuscular Volume 86.6 fL (80.0-98.0); Mean Platelet Volume 11.2 fL (9.4-12.3); Monocytes Absolute Auto 0.5 X10*3/uL (0.1-1.2); Monocytes Percent Auto 10.5 % (2-11); Neutrophils Absolute Auto 2.6 x10*3/uL (2.0-8.3); Neutrophils Percent Auto 53.2 % (45-73); Platelet Count 151 X10*3/uL (160-400); Red Blood Count 5.07 X10*6/uL (4.20-5.50); Red Cell Distribution Width 14.5 % (11.0-16.0); White Blood Count 4.9 X10*3/uL (4.8-10.8)
[2022-05-16 09:39] LABS: Alanine Aminotransferase 20 U/L (0-31); Albumin Level 4.2 g/dL (3.5-5.0); Alkaline Phosphatase 64 U/L (39-117); Anion Gap 12 (12-20); Aspartate Amino Transferase 27 U/L (5-31); Bilirubin Total 0.7 mg/dL (0.0-1.0); Blood Urea Nitrogen 11 mg/dL (9-16); Calcium 9.2 mg/dL (8.4-10.2); Carbon Dioxide 28 mmol/L (22-29); Chloride 106 mmol/L (96-108); Cholesterol 190 mg/dL; Estimated Glomerular Filt Rate 56; Glucose Fasting 113 mg/dL (60-99); HDL Cholesterol 63 mg/dL; LDL Cholesterol Calculated 110 mg/dl; Potassium 3.9 mmol/L (3.3-5.1); Sodium 142 mmol/L (135-145); Total Protein 6.8 g/dL (6.5-8.0); Triglycerides 85 mg/dL
== END 2022-05-16 06:48 | disposition home or self-care (01) ==
LOC: HO.LAB 06:47
PROVIDERS: PCP Internal Medicine; Visit Provider Internal Medicine
DX: Z00.00 Encounter for general adult medical examination without abnormal findings (principal)
CPT/HCPCS: 36415; 80053; 80061; 85025

== ENCOUNTER → 2022-08-05 08:46 | Outpatient (BNVA) | payer BC, SELFPAY | PROVIDERS: PCP Internal Medicine; Visit Provider Dietitian, Registered | DX: E66.3 Overweight (principal); Z68.27 Body mass index [BMI] 27.0-27.9, adult | CPT/HCPCS: 97802 ==

== ENCOUNTER 2022-08-08 07:25 | Outpatient (REF) | payer BC, SELFPAY ==
--- NOTE | ~2022-08-08 | MM_ITS ---
EXAMINATION: MM SCREENING DIGITAL BREAST TOMOSYNTHESIS, BILATERAL CLINICAL INFORMATION: Screening. Asymptomatic. Remote history reduction mammoplasty, 2009. The lifetime risk of breast cancer based on the Tyrer-Cuzick Model is 6%. COMPARISON: Mammography: 08/02/2021, 07/27/2020, 09/05/2018 TECHNIQUE: Digital breast tomosynthesis is performed in both the craniocaudal and mediolateral oblique views along with computer-aided detection (CAD). Synthesized 2D images are generated from the tomosynthesis. FINDINGS: There are scattered areas of fibroglandular density (ACR BI-RADS breast composition Category b). There are no significant masses, abnormal calcifications, or other abnormalities. No developing density or architectural abnormality. The axilla are unremarkable. Skin contours are smooth. No significant changes. MM/MM tomosynthesis screening BI IMPRESSION: No mammographic evidence of malignancy. ASSESSMENT: BI-RADS 1: Negative RECOMMENDATION: Routine annual mammography screening. This patient's information was entered into a reminder system with a target due date for their next mammogram.
== END 2022-08-08 07:26 | disposition home or self-care (01) ==
LOC: HO.MAMMO 07:25
PROVIDERS: PCP Internal Medicine; Visit Provider Internal Medicine
DX: Z12.31 Encounter for screening mammogram for malignant neoplasm of breast (principal)
CPT/HCPCS: 77063; 77067

== ENCOUNTER → 2023-04-29 08:01 | Outpatient (BNVA) | payer BC, SELFPAY | PROVIDERS: PCP Internal Medicine; Visit Provider Advanced Practice Midwife ==

== ENCOUNTER 2023-08-14 15:37 | Outpatient (REF) | payer BC, SELFPAY ==
--- NOTE | ~2023-08-14 | MM_ITS ---
EXAMINATION: MM SCREENING DIGITAL BREAST TOMOSYNTHESIS, BILATERAL CLINICAL INFORMATION: Screening. Asymptomatic. The patient is status post bilateral breast reduction. COMPARISON: Mammography: This study is compared with prior exams dating back to 2017. TECHNIQUE: Digital breast tomosynthesis is performed in both the craniocaudal and mediolateral oblique views along with computer-aided detection (CAD). Synthesized 2D images are generated from the tomosynthesis. FINDINGS: The breasts are almost entirely fatty (ACR BI-RADS breast composition Category a). There are no significant masses, abnormal calcifications, or other abnormalities. MM/MM tomosynthesis screening BI IMPRESSION: No mammographic evidence of malignancy. Mild, bilateral post reduction changes are present. There is a tissue marker in the right breast from prior benign percutaneous biopsy. ASSESSMENT: BI-RADS BI-RADS 2 - Benign Findings RECOMMENDATION: Routine annual mammography screening. 1 year F/U This examination should not preclude the clinical evaluation of a suspicious palpable abnormality. This patient's information was entered into a reminder system with a target due date for their next mammogram.
== END 2023-08-14 15:38 | disposition home or self-care (01) ==
LOC: HO.MAMMO 15:37
PROVIDERS: PCP Internal Medicine; Visit Provider Internal Medicine
DX: Z12.31 Encounter for screening mammogram for malignant neoplasm of breast (principal)
CPT/HCPCS: 77063; 77067

== ENCOUNTER → 2023-08-14 15:45 | Outpatient (BNV) | payer BC, SELFPAY | PROVIDERS: PCP Internal Medicine; Visit Provider Radiology Diagnostic Radiology | DX: Z12.31 Encounter for screening mammogram for malignant neoplasm of breast (principal) | CPT/HCPCS: 77063; 77067 ==

== ENCOUNTER 2024-02-16 12:51 | Outpatient (REF) | payer BC, SELFPAY ==
[2024-02-16 13:53] LABS: Estimated Average Glucose 143 mg/dL; Hemoglobin A1c % 6.6 % (<6.0)
[2024-02-16 14:27] LABS: Alanine Aminotransferase 19 U/L (0-31); Albumin Level 3.8 g/dL (3.5-5.0); Alkaline Phosphatase 64 U/L (39-117); Anion Gap 11 (12-20); Aspartate Amino Transferase 18 U/L (5-31); Bilirubin Total 0.5 mg/dL (0.0-1.0); Blood Urea Nitrogen 8 mg/dL (9-16); Calcium 9.7 mg/dL (8.4-10.2); Carbon Dioxide 28 mmol/L (22-29); Chloride 105 mmol/L (96-108); Cholesterol 153 mg/dL (<200); Estimated Glomerular Filt Rate > 60; Glucose Random 119 mg/dL (60-115); HDL Cholesterol 55 mg/dL (>40); LDL Cholesterol Calculated 79 mg/dL (<100); Potassium 4.2 mmol/L (3.3-5.1); Sodium 140 mmol/L (135-145); Total Protein 6.9 g/dL (6.5-8.0); Triglycerides 95 mg/dL (<150)
== END 2024-02-16 12:52 | disposition home or self-care (01) ==
LOC: HO.LAB 12:51
PROVIDERS: Visit Provider Dermatology
DX: E66.3 Overweight (principal)
CPT/HCPCS: 36415; 80053; 80061; 83036; 84443

== ENCOUNTER 2024-08-17 14:54 | Outpatient (REF) | payer BC, SELFPAY ==
--- NOTE | ~2024-08-17 | MM_ITS ---
EXAMINATION: MM SCREENING DIGITAL BREAST TOMOSYNTHESIS, BILATERAL CLINICAL INFORMATION: Screening. Asymptomatic. COMPARISON: Mammography: Comparison is made with available priors TECHNIQUE: Digital breast mammography with tomosynthesis is performed in both the craniocaudal and mediolateral oblique views along with computer-aided detection (CAD). FINDINGS: There are scattered areas of fibroglandular density (ACR BI-RADS breast composition Category b). Bilateral reduction mammoplasty changes. There are no significant masses, abnormal calcifications, or other abnormalities. MM/MM tomosynthesis screening BI IMPRESSION: No mammographic evidence of malignancy. ASSESSMENT: BI-RADS BI-RADS 2 - Benign Findings RECOMMENDATION: Routine annual mammography screening. 1 year F/U This examination should not preclude the clinical evaluation of a suspicious palpable abnormality. This patient's information was entered into a reminder system with a target due date for their next mammogram. Electronically signed by: Lisa Everett DO 08/27/2024 09:04 AM EDT
== END 2024-08-17 14:55 | disposition home or self-care (01) ==
LOC: HO.MAMMO 14:54
PROVIDERS: PCP Internal Medicine; Visit Provider Internal Medicine
DX: Z12.31 Encounter for screening mammogram for malignant neoplasm of breast (principal)
CPT/HCPCS: 77063; 77067

== ENCOUNTER → 2024-08-17 15:00 | Outpatient (BNV) | payer BC, SELFPAY | PROVIDERS: PCP Internal Medicine; Visit Provider Internal Medicine | DX: Z12.31 Encounter for screening mammogram for malignant neoplasm of breast (principal) | CPT/HCPCS: 77063; 77067 ==

== ENCOUNTER 2025-02-10 10:58 | Outpatient (AMB) | payer BC, SELFPAY ==
--- NOTE | 2025-02-10 10:59 | MHC.PC.OV ---
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 Hand Required: No Accompanied by: Self / Same As Patient Allergies hydrocodone [From Vicodin] Adverse Reaction (Mild, Verified 02/10/25 11:13) VOMITING oxycodone [From Percocet] Adverse Reaction (Mild, Verified 02/10/25 11:13) VOMITING Tobacco use date assessed: 02/10/25 Dental Screening Dental Screen Date: 02/10/25 Did you have a dental visit in the last 12 months?: Yes Did you have a dental problem in the last 6 months where you did not have access to dental care?: No HPI HPI Comments History of Present Illness Details The patient is a 59 year old female with a past medical history of hyperlipidemia, gastric banding, diverticulosis, GERD, DVT/PE, diabetic range A1C 03/10 presenting for follow up Incredibly stressed, anxiety. had a stroke in Dec was in for 38 days-still in rehab in [facility]. CV: On simvastatin Last A1C in 02/2024 diabetic range Anesthesiology Physician Assistant: [facility] Last mammogram 08/2024 UTD on colonoscopy. 08/07/21 ROS see HPI PHYSICAL EXAM: GENERAL: Alert and oriented x 3. NAD EYES: EOMI. Anicteric. HENT: Moist mucous membranes. No scleral icterus. No cervical lymphadenopathy. LUNGS: Clear to auscultation bilaterally. CARDIOVASCULAR: Regular rate and rhythm. No murmur. No JVD. ABDOMEN: Soft, non-tender +bs EXTREMITIES: No edema. Non-tender. SKIN: No rashes or lesions. Warm. NEUROLOGIC: No focal neurological deficits. CN II-XII grossly intact PSYCHIATRIC: Cooperative. Appropriate mood and affect [facility] Medical History Hair loss Hot flashes Menopausal vaginal dryness Low libido [place] esophagus Hiatal hernia GERD (gastroesophageal reflux disease) Rosacea Osteoarthritis Elevated cholesterol Pulmonary embolus DVT (deep venous thrombosis) Surgical History Hx of cholecystectomy Hx of rectal sphincterotomy Hx of section Hx of umbilical hernia repair Hx of reduction mammoplasty History of partial hysterectomy Hx of abdominal surgery Hx of laparoscopic gastric banding H/O colonoscopy History of esophagogastroduodenoscopy (EGD) S/P insertion of IVC (inferior vena caval) filter Family History Mother Diabetes Hypertension Thyroid condition Father No problems noted. Brother No problems noted. Brother Diabetes Gout Brother No problems noted. Sister Pancreatic cancer Sister Colitis Social History Housing: House Alcohol intake: current Alcohol intake frequency: holidays/special occasions only Patient Tobacco Use Status: Never used Tobacco e-Cigarette/Vaping Use: Never Used Advance Directives Date on File: 02/23/16 service: No Current occupational status: employed Sexual orientation: Straight/Heterosexual Gender identity: Female Cognitive needs: No Hearing needs: No Vision needs: Yes (rx glasses) Questionnaire PHQ-9 Over the last 2 weeks, how often have you been bothered by any of the following problems? 1. Little interest or pleasure in doing things: not at all 2. Feeling down, depressed, or hopeless: several days 3. Trouble falling or staying asleep, or sleeping too much: several days 4. Feeling tired or having little energy: nearly every day 5. Poor appetite or overeating: not at all 6. Feeling bad about yourself - or that you are a failure or have let yourself or your family down: not at all 7. Trouble concentrating on things, such as reading the newspaper or watching television: not at all 8. Moving or speaking so slowly that other people could have noticed. Or the opposite - being so fidgety or restless that you have been moving around a lot more than usual: not at all 9. Thoughts that you would be better off or of hurting yourself in some way: not at all Total score: 5 Depression Screening Interpretation: Positive Depression Screening Done: Yes 90418 - PHQ-9 Billing: Yes Source: Developed by Drs. Yariel Warren, Fiorella Espana, Xavier Hassan and colleagues, with an educational laura from [employer]. Thrive Questionnaire Date Thrive assessed: 02/10/25 I am a: Patient Within the past 12 months, did the food you bought not last and you didn't have the money to get more?: Never true Within the past 12 months, did you worry whether your food would run out before you got money to buy more?: Never true Do you have trouble paying for medicines?: No Do you have trouble getting transportation to medical appointments?: No Do you have trouble paying your heating and electricity bill?: No Do you have trouble taking care of your child, family member or friend?: No Do you have trouble with day-to-day activities such as bathing, preparing meals, shopping, managing finances, etc.?: No Are you currently unemployed and looking for a job?: No Are you interested in more education?: No THRIVE Score: 0 AUDIT C Alcohol Use Questionnaire (AUDIT-C) 1. How often do you have a drink containing alcohol?: Monthly or less 2. How many drinks containing alcohol do you have on a typical day when you are drinking?: 1 or 2 3. How often do you have six or more drinks on one occasion?: Less than monthly Total Score: 2 CHAD-7 AMB Questionnaire CHAD-7 Date CHAD - 7 assessed: 02/10/25 Feeling nervous, anxious, or on edge: 1 = Several days Not being able to stop or control worryin = Not at all Worrying too much about different things: 3 = Nearly every day Trouble relaxin = Several days Being so restless that it is hard to sit still: 0 = Not at all Becoming easily annoyed or irritable: 0 = Not at all Feeling afraid as if something awful might happen: 3 = Nearly every day Total CHAD-7 score (0-4 normal; 5-9 mild; 10-14 moderate; 15-21 severe): 8 Source: Developed by Drs. Yariel Warren, Fiorella Espana, Xavier Hassan and colleagues, with an educational laura from [employer]. Physical exam (Primary Care) Vital Signs: Last Vital Signs Temp 97.6 F 02/10/25 11:10 Pulse 73 02/10/25 11:10 BP 132/80 02/10/25 11:10 Pulse Ox 99 02/10/25 11:10 Oxygen Delivery Method Room Air 02/10/25 11:10 BMI result Body Mass Index 29.6 Tobacco/Smoking Status: Tobacco use Status Tobacco use date assessed 02/10/25 02/10/25 11:03 Patient Tobacco Use Status Never used Tobacco 02/10/25 11:03 e-Cigarette/Vaping Use Never Used 02/10/25 11:03 PHQ-9: PHQ-9 Score PHQ-9: Total score 5 02/10/25 11:22 Depression Screening Interpretation: Positive Thrive Assessment: Date of Thrive Assessment Date Thrive assessed 02/10/25 02/10/25 11:03 Coding Level of Care Code New Pt Level 4 (90748) Diagnoses Prediabetes R73.03 Anxiety F41.9 Additional Codes PHQ-9 - 83341 - PHQ-9 Billing: Yes ([id number]) Assessment & Plan Assessment & Plan (1) Prediabetes: Code(s): R73.03 - Prediabetes Category: Medical (2) Anxiety: Code(s): F41.9 - Anxiety disorder, unspecified Category: Medical Plan 59 year old to establish care Increased anxiety/stress Hyperlipidemia-labs ordered. Simvastatin ordered Orders: Orders Lipid Panel 02/10/25 R73.03 - Prediabetes, Z13.0 - Encounter for screening for diseases of the blood and blood-forming organs and certain disorders involving the immune mechanism, Z13.228 - Encounter for screening for other metabolic disorders Hemoglobin A1c 02/10/25 R73.03 - Prediabetes, Z13.0 - Encounter for screening for diseases of the blood and blood-forming organs and certain disorders involving the immune mechanism, Z13.228 - Encounter for screening for other metabolic disorders Complete Blood Count Auto Diff 02/10/25 R73.03 - Prediabetes, Z13.0 - Encounter for screening for diseases of the blood and blood-forming organs and certain disorders involving the immune mechanism, Z13.228 - Encounter for screening for other metabolic disorders Comprehensive Met. Panel 02/10/25 R73.03 - Prediabetes, Z13.0 - Encounter for screening for diseases of the blood and blood-forming organs and certain disorders involving the immune mechanism, Z13.228 - Encounter for screening for other metabolic disorders TSH reflex Free T4 02/10/25 R73.03 - Prediabetes, Z13.0 - Encounter for screening for diseases of the blood and blood-forming organs and certain disorders involving the immune mechanism, Z13.228 - Encounter for screening for other metabolic disorders Medications: Changed From simvastatin 1 tab PO DAILY To simvastatin 20 mg PO DAILY 90 tabs 3RF
[2025-02-10 11:10] VITALS: BP 132/80; PULSE 73; TEMP 36.4; O2SAT 99; BMI 29.6
== END 2025-02-10 11:42 | disposition home or self-care (01) ==
LOC: HO.HMCHD 10:58
PROVIDERS: PCP Internal Medicine; Visit Provider Internal Medicine
DX: R73.03 Prediabetes (principal); F41.9 Anxiety disorder, unspecified

== ENCOUNTER → 2025-02-10 10:58 | Outpatient (BNVA) | payer BC, SELFPAY | PROVIDERS: PCP Internal Medicine; Visit Provider Internal Medicine | DX: E78.5 Hyperlipidemia, unspecified (principal); K57.90 Diverticulosis of intestine, part unspecified, without perforation or abscess without bleeding; K21.9 Gastro-esophageal reflux disease without esophagitis; R73.03 Prediabetes; F41.9 Anxiety disorder, unspecified; Z86.718 Personal history of other venous thrombosis and embolism | CPT/HCPCS: 96127 ==

== ENCOUNTER 2025-02-10 11:47 | Outpatient (REF) | payer BC, SELFPAY ==
[2025-02-10 13:12] LABS: MANUAL DIFF FLAG NO
[2025-02-10 13:23] LABS: Basophils Percent Auto 0.4 % (0-2); Eosinophils Absolute Auto 0.1 X10*3/uL (0.0-0.4); Eosinophils Percent Auto 1.7 % (0-4); Hematocrit 43.3 % (37.0-47.0); Hemoglobin 13.7 g/dl (12.0-16.0); Imm Gran Abs Auto 0.02 X10*3/uL (0.00-0.03); Imm Gran Pct Auto 0.3 % (0.0-0.4); Lymphocytes Absolute Auto 1.9 X10*3/uL (1.2-4.9); Lymphocytes Percent Auto 26.9 % (20-40); Mean Corpuscular HGB Conc 31.6 g/dl (31.0-35.0); Mean Corpuscular Hemoglobin 27.3 pg (27.0-33.0); Mean Corpuscular Volume 86.3 fL (80.0-98.0); Mean Platelet Volume 10.3 fL (9.4-12.3); Monocytes Absolute Auto 0.6 X10*3/uL (0.1-1.2); Monocytes Percent Auto 8.5 % (2-11); Neutrophils Absolute Auto 4.3 x10*3/uL (2.0-8.3); Neutrophils Percent Auto 62.2 % (45-73); Platelet Count 225 X10*3/uL (160-400); Red Blood Count 5.02 X10*6/uL (4.20-5.50); Red Cell Distribution Width 14.2 % (11.0-16.0)
[2025-02-10 13:37] LABS: Estimated Average Glucose 151 mg/dL; Hemoglobin A1C 190.0347 umol/L; Hemoglobin A1c % 6.9 % (<6.0); Total Hemoglobin (HGBA1C) 3637.5866 umol/L
[2025-02-10 14:22] LABS: Alanine Aminotransferase 20 U/L (0-31); Albumin Level 4.1 g/dL (3.5-5.0); Alkaline Phosphatase 56 U/L (39-117); Anion Gap 9 (12-20); Aspartate Amino Transferase 16 U/L (5-31); Bilirubin Total 0.5 mg/dL (0.0-1.0); Blood Urea Nitrogen 21 mg/dL (9-16); Calcium 9.5 mg/dL (8.4-10.2); Carbon Dioxide 28 mmol/L (22-29); Chloride 108 mmol/L (96-108); Cholesterol 200 mg/dL (<200); Estimated Glomerular Filt Rate 56; Glucose Random 142 mg/dL (60-115); HDL Cholesterol 53 mg/dL (>40); LDL Cholesterol Calculated 126 mg/dL (<100); Potassium 4.3 mmol/L (3.3-5.1); Sodium 141 mmol/L (135-145); Total Protein 6.7 g/dL (6.5-8.0); Triglycerides 109 mg/dL (<150)
[2025-02-10 14:39] LABS: TSH reflex Free T4 3.58 uIU/mL (0.32-4.0)
== END 2025-02-10 11:48 | disposition home or self-care (01) ==
LOC: HO.10HDL 11:47
PROVIDERS: Visit Provider Internal Medicine
DX: Z13.0 Encounter for screening for diseases of the blood and blood-forming organs and certain disorders involving the immune mechanism (principal); R73.03 Prediabetes; Z13.228 Encounter for screening for other metabolic disorders; Z13.6 Encounter for screening for cardiovascular disorders
CPT/HCPCS: 36415; 80053; 80061; 83036; 84443; 85025

== ENCOUNTER 2025-03-03 10:37 | Outpatient (AMB) | payer BC, SELFPAY ==
[2025-03-03 10:42] VITALS: BP 134/76; PULSE 76; TEMP 36.1; O2SAT 99; BMI 29.4
--- NOTE | 2025-03-03 10:42 | MHC.PC.OV ---
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 Accompanied by: Self / Same As Patient Allergies hydrocodone [From Vicodin] Adverse Reaction (Mild, Verified 03/03/25 10:42) VOMITING oxycodone [From Percocet] Adverse Reaction (Mild, Verified 03/03/25 10:42) VOMITING Tobacco use date assessed: 03/03/25 Dental Screening Dental Screen Date: 03/03/25 Did you have a dental visit in the last 12 months?: Yes Did you have a dental problem in the last 6 months where you did not have access to dental care?: No HPI HPI Comments History of Present Illness Details The patient is a 59 year old female with a past medical history of hyperlipidemia, gastric banding, diverticulosis, GERD, DVT/PE, diabetic range A1C 03/10 presenting for follow up Incredibly stressed, anxiety. had a stroke in Dec was in for 38 days-still in rehab in [facility]. CV: On simvastatin A1C in 02/2024 diabetic range, repeat recent is 6.6%. With husbands illness and work her schedule has been quite hectic. She is active and is eating a healthy diet trying to limit sugars, carbs and watch calories. 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 08/07/21 ROS see HPI PHYSICAL EXAM: GENERAL: Alert and oriented x 3. NAD EYES: EOMI. Anicteric. HENT: Moist mucous membranes. No scleral icterus. LUNGS: Clear to auscultation bilaterally. CARDIOVASCULAR: Regular rate and rhythm. No murmur. No JVD. ABDOMEN: Soft, non-tender +bs EXTREMITIES: No edema. Non-tender. SKIN: No rashes or lesions. Warm. NEUROLOGIC: No focal neurological deficits. CN II-XII grossly intact PSYCHIATRIC: Cooperative. Appropriate mood and affect [facility] Medical History Hair loss Hot flashes Menopausal vaginal dryness Low libido Madrid esophagus Hiatal hernia GERD (gastroesophageal reflux disease) Rosacea Osteoarthritis Elevated cholesterol Pulmonary embolus DVT (deep venous thrombosis) Surgical History Hx of cholecystectomy Hx of rectal sphincterotomy Hx of section Hx of umbilical hernia repair Hx of reduction mammoplasty History of partial hysterectomy Hx of abdominal surgery Hx of laparoscopic gastric banding H/O colonoscopy (~08/15/21) History of esophagogastroduodenoscopy (EGD) S/P insertion of IVC (inferior vena caval) filter Family History Mother Diabetes Hypertension Thyroid condition Father No problems noted. Brother No problems noted. Brother Diabetes Gout Brother No problems noted. Sister Pancreatic cancer Sister Colitis Social History Housing: House Alcohol intake: current Alcohol intake frequency: holidays/special occasions only Patient Tobacco Use Status: Never used Tobacco e-Cigarette/Vaping Use: Never Used Advance Directives Date on File: 02/23/16 service: No Current occupational status: employed Sexual orientation: Straight/Heterosexual Gender identity: Female Cognitive needs: No Hearing needs: No Vision needs: Yes (rx glasses) Questionnaire PHQ-9 Over the last 2 weeks, how often have you been bothered by any of the following problems? 1. Little interest or pleasure in doing things: not at all 2. Feeling down, depressed, or hopeless: nearly every day 3. Trouble falling or staying asleep, or sleeping too much: not at all 4. Feeling tired or having little energy: not at all 5. Poor appetite or overeating: not at all 6. Feeling bad about yourself - or that you are a failure or have let yourself or your family down: not at all 7. Trouble concentrating on things, such as reading the newspaper or watching television: not at all 8. Moving or speaking so slowly that other people could have noticed. Or the opposite - being so fidgety or restless that you have been moving around a lot more than usual: not at all 9. Thoughts that you would be better off or of hurting yourself in some way: not at all Total score: 3 Depression Screening Interpretation: Negative Depression Screening Done: Yes 39072 - PHQ-9 Billing: Yes Source: Developed by Drs. Yariel Warren, Fiorella Espana, Xavier Hassan and colleagues, with an educational laura from [employer]. Thrive Questionnaire Date Thrive assessed: 03/03/25 I am a: Patient Within the past 12 months, did the food you bought not last and you didn't have the money to get more?: Never true Within the past 12 months, did you worry whether your food would run out before you got money to buy more?: Never true Do you have trouble paying for medicines?: No Do you have trouble getting transportation to medical appointments?: No Do you have trouble paying your heating and electricity bill?: No Do you have trouble taking care of your child, family member or friend?: No Do you have trouble with day-to-day activities such as bathing, preparing meals, shopping, managing finances, etc.?: No Are you currently unemployed and looking for a job?: No Are you interested in more education?: No THRIVE Score: 0 AUDIT C Alcohol Use Questionnaire (AUDIT-C) 1. How often do you have a drink containing alcohol?: Monthly or less 2. How many drinks containing alcohol do you have on a typical day when you are drinking?: 1 or 2 3. How often do you have six or more drinks on one occasion?: Less than monthly Total Score: 2 CHAD-7 AMB Questionnaire CHAD-7 Date CHAD - 7 assessed: 03/03/25 Feeling nervous, anxious, or on edge: 0 = Not at all Not being able to stop or control worryin = Not at all Worrying too much about different things: 0 = Not at all Trouble relaxin = Not at all Being so restless that it is hard to sit still: 0 = Not at all Becoming easily annoyed or irritable: 0 = Not at all Feeling afraid as if something awful might happen: 0 = Not at all Total CAHD-7 score (0-4 normal; 5-9 mild; 10-14 moderate; 15-21 severe): 0 Source: Developed by Drs. Yariel Warren, Xavier Prado and colleagues, with an educational laura from [employer]. Physical exam (Primary Care) Vital Signs: Last Vital Signs Temp 97 F 03/03/25 10:42 Pulse 76 03/03/25 10:42 BP 134/76 03/03/25 10:42 Pulse Ox 99 03/03/25 10:42 Oxygen Delivery Method Room Air 03/03/25 10:42 BMI result Body Mass Index 29.4 Tobacco/Smoking Status: Tobacco use Status Tobacco use date assessed 03/03/25 03/03/25 10:44 Patient Tobacco Use Status Never used Tobacco 03/03/25 10:44 e-Cigarette/Vaping Use Never Used 03/03/25 10:44 PHQ-9: PHQ-9 Score PHQ-9: Total score 3 03/04/25 12:17 Depression Screening Interpretation: Negative Thrive Assessment: Date of Thrive Assessment Date Thrive assessed 03/03/25 03/03/25 10:44 Coding Level of Care Code Est Pt Level 4 (88725) Diagnoses Type 2 diabetes mellitus without complication, without long-term current use of insulin E11.9 Diabetes mellitus complication status: without complication Diabetes mellitus custodial insulin use: without termite control servicer use Diabetes mellitus type: type 2 Anxiety F41.9 Overweight E66.3 Hyperlipidemia, unspecified hyperlipidemia type E78.5 Hyperlipidemia type: unspecified Additional Codes PHQ-9 - 57219 - PHQ-9 Billing: Yes ([id number]) Assessment & Plan Assessment & Plan (1) Diabetes: Code(s): E11.9 - Type 2 diabetes mellitus without complications Category: Medical Qualifiers: Diabetes mellitus complication status: without complication Diabetes mellitus custodial insulin use: without termite control servicer use Diabetes mellitus type: type 2 Qualified Code(s): E11.9 - Type 2 diabetes mellitus without complications (2) Anxiety: Code(s): F41.9 - Anxiety disorder, unspecified Category: Medical (3) Overweight: Code(s): E66.3 - Overweight Category: Medical (4) Hyperlipidemia: Code(s): E78.5 - Hyperlipidemia, unspecified Category: Medical Qualifiers: Hyperlipidemia type: unspecified Qualified Code(s): E78.5 - Hyperlipidemia, unspecified Plan 59 year old female with new diabetes Diagnosis discussed. Potential medications reviewed. Given hld, overweight, almost obese would like to start GLP She will repeat A1C in 3 months Orders: Orders Hemoglobin A1c 14 Weeks E11.9 - Type 2 diabetes mellitus without complications Comprehensive Met. Panel 14 Weeks E11.9 - Type 2 diabetes mellitus without complications Medications: New Mounjaro (tirzepatide) for 4 weeks 2.5 mg (0.5 mL) subcut QWEEK 2 mL 0RF NS E11.9 - Type 2 diabetes mellitus without complications
--- OUTSIDE RECORDS SUMMARY | 2025-03-03 12:48 | XMS_ITS | Patient Health Record ---
Author Organization [facility] Address [address] [place] [address] Care Team Providers Care Mds Coordinator Name Role Phone Casey Lee MD Primary Care Provider Yariel Buck Unavailable [phone] Allergies Allergen (clinical drug ingredient) Drug/Non Drug Allergy documented on EMR Reaction Allergy Type Onset Date Status Vicodin vomiting Drug Allergy Active acetaminophen / oxycodone Percocet vomiting Drug Allergy Active Reason For Referral No Information Medications Medication SIG (Take, Route, Frequency, Duration) Notes Start Date End Date Status Biotin Active Centrum Silver 50+Women Active Multivitamin Adult A ctive Calcium Plus Vitamin D3 Active Magnesium 400mg Acti ve MiraLax 17gm Active Aspir-Low 81mg Activ e Nabumetone 500 MG 1 tablet Orally Twic e a dayprn Active Simvastatin 20mg Act elma Esomeprazole Magnesium 40 MG TAKE 1 CAPSULE ONCE DAILY Orally Once a day for 90 days Active Finacea Active Doxycycline (Rosacea) 50 mg Active Gabapentin 100 MG 1 capsule Orally hs Active Melatonin Active Immunizations Vaccine Route Administration Date Status Comme nts Influenza Unknown 12/18/2020 Administered Problems Problem Type SNOMED Code ICD Code Onset Dates Problem Status W/U Status Risk Notes Problem 457114275 Encounter for screening for malignant neoplasm of colon (Z12.11) Active confirmed Problem 807998863 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) Active confirmed Problem Gastroesophageal reflux disease (635792902) Gastroesophageal reflux disease (K21.9) Active confirmed Problem 753033518 Gastroesophageal reflux disease without esophagitis (K21.9) Active confirmed Problem 075808746 Barretts esophag us without dysplasia (K22.70) Active confirmed Problem 68876752 Hiatal hernia (K44.9) Active confirmed Problem Benign neoplasm of stomach (09892566) Gastric polyps (K31.7) Active confirmed Problem Madrid esophagus (758819289) 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) Active confirmed Problem Diverticulosis of colon (639519600) Diverticulosis of colon (K57.30) Active confirmed Encounters Encounter Location Date Provider Diagnosis [facility] [address] [place] [address] 06/13/2024 Yariel Hilliard Plan Of Treatment Pending Test Test Name Order Date XR BARIUM SWALLOW-ESOPHAGUS 08/19/2021 XR GI SERIES 08/19/2021 Future Test Test Name Order Date UPPER GI ENDOSCOPY 02/15/2016 UPPER GI ENDOSCOPY 06/14/2021 COLONOSCOPY 06/14/2021 Insurance Providers Payer Name Payer Address Payer Phone Subscriber Number Group Number Insured Name Patient Relationship to Insured Coverage Start Date Coverage End Date [facility] [address] [place], [place] [id number] SIMEON SORIANO Self - patient is the insured Medical (General) History Medical History History ICD Code Pulmonary embolus with DVT i n Jul 2007-has IVC filter-occurred 2 months after a panniculectomy EGD 02/28/2010 with a large HH and small area of Madrid's esophagus-no dysplasia Denies HI,DM,CVA,Lung disease,renal dise ase Hyperlipidemia Rectal spasm---She had a col onoscopy in September of 2012 that was negative for polyps, rectal disease, nor any perianal disease that would account for her rectal pain EGD in 03/2013--Madrid's, HH, bx neg for dysplasia Osteoarthritis--sees a proof passer Right hip bursitis/arthritis--gets corti sone injections EGD in 2016-HH, no Madrid's, no esophag itis Surgical History Surgery Date(Month/Year) Gastric stapling in 1997 with a vertical band gastroplasty Panniculectomy April 2007 Partial hysterectomy Aug 2008 Breast reduction January 2009 Umbilical hernia surgery section Anal fissure--sphincterotomy by Dr. Reilly hernandez
--- OUTSIDE RECORDS SUMMARY | 2025-03-03 12:48 | XMS_ITS ---
Author Organization [facility] Address [address] [facility] [place] [address] Care Team Providers Care Utilities Service Investigator Name Role Phone Casey Lee MD Primary Care Provider Yariel Buck [phone] Medications Medication SIG (Take, Route, Frequency, Duration) Notes Start Date End Date Status Esomeprazole Magnesium 40 MG TAKE 1 CAPSULE ONCE DAILY Orally Once a day for 90 days Active Encounters Encounter Location Date Provider Diagnosis [facility] [address] [place] [address] [place] [address] 06/13/2024 Yariel Hilliard Plan Of Treatment Medication Medication Name Sig Start Date Stop Date Notes Esomeprazole Magnesium 40 MG TAKE 1 CAPS ULE ONCE DAILY Orally Once a day for 90 days Progress Notes * SIMEON SORIANO NDOB: [birth year] (58 yo F)Acc No.[id number]:06/13/2024 Patient:?SIMEON SORIANO :1965???Age:58 Y???Sex:Female Address:[address] [place] [address] * Refills? Refill Esomeprazole Magnesium Capsule Delayed Release, 40 MG, Orally, 90, TAKE 1 CAPSULE ONCE DAILY, Once a day, 90 days, Refills=3 * true * Date:? Generated for Anita bermeo/Carmen/eTransmitting on:?03/03/2025 12:48 PM EDT
--- OUTSIDE RECORDS SUMMARY | 2025-03-03 12:48 | XMS_ITS | Clinical Summary ---
Author Organization [facility] Address [address] [place] [address] Care Team Providers Care Medical Administrative Specialist Name Role Phone Casey Lee MD Primary Care Provider [phone] Social History Tobacco Use Types Packs/Day Years Used Date Smoking Tobacco: Never Assessed Sex and Gender Information Value Date Recorded Sex Assigned at Not on file Gender Identity Not on file Sexual Orientation Not on file Plan of Treatment Health Maintenance Due Date Last Done Comments Hepatitis C Screening 1965 COVID-19 Vaccine (#1) 06/01/1964 Depression Screening 1975 Preventative Health Evaluation 1981 DTap / Tdap / Td (1 - Tdap) 1982 Cervical Cancer Screening (P ap Smear) 1984 Colon Cancer Screening (Colonoscopy) 2008 Breast Cancer Screening (Mammogram) 2013 Shingrix-Zoster Vaccine (1 of 2) 2013 Influenza Vaccine (#1) 2024 RSV Adult > 60+ Yrs or Pregn ant (1 - 1-dose 75+ series) 2038 Hepatitis B Vaccines Aged Out No long er eligible based on patient's age to complete this topic Pneumococcal Vaccine Aged Out No long er eligible based on patient's age to complete this topic RSV Ped < 20 months Aged Out No longe r eligible based on patient's age to complete this topic Care Teams Medical Administrative Specialist Relationship Specialty Start Date End Date Casey Lee MD [address] [place] [address] [place] [address] PCP - General Teller Manager 08/31/20
== END 2025-03-03 11:07 | disposition home or self-care (01) ==
LOC: HO.HMCHD 10:38
PROVIDERS: PCP Internal Medicine; Visit Provider Internal Medicine
DX: E11.9 Type 2 diabetes mellitus without complications (principal); F41.9 Anxiety disorder, unspecified; E66.3 Overweight; E78.5 Hyperlipidemia, unspecified

== ENCOUNTER → 2025-03-03 10:37 | Outpatient (BNVA) | payer BC, SELFPAY | PROVIDERS: PCP Internal Medicine; Visit Provider Internal Medicine | DX: E11.9 Type 2 diabetes mellitus without complications (principal); E66.3 Overweight; E78.5 Hyperlipidemia, unspecified; K57.90 Diverticulosis of intestine, part unspecified, without perforation or abscess without bleeding; K21.9 Gastro-esophageal reflux disease without esophagitis; F41.9 Anxiety disorder, unspecified; Z98.84 Bariatric surgery status; Z68.29 Body mass index [BMI] 29.0-29.9, adult | CPT/HCPCS: 96127 ==

== ENCOUNTER 2025-06-01 10:29 | Outpatient (REF) | payer BC, SELFPAY ==
--- OUTSIDE RECORDS SUMMARY | 2025-06-01 11:04 | XMS_ITS | Patient Health Record ---
[facility] Organization [facility] Address [address] [facility] [place] [address] Care Team Providers Care Director Print Name Role Phone Casey Lee MD Primary Care Provider Alexsandra licea Carolina Montemayore Unavailable [phone] Allergies Allergen (clinical drug ingredient) Drug/Non Drug Allergy documented on EMR Reaction Allergy Type Onset Date Status Vicodin nausea and vomiting Drug Allergy Active acetaminophen / oxycodone Percocet nausea and vomiting Drug Allergy Active Reason For Referral No Information Medications Medication SIG (Take, Route, Frequency, Duration) Notes Start Date End Date Status MiraLax - Orally Active Biotin 5000 MCG 1 tablet Orally Once a day Active Multivitamin - Orally Activ e Magnesium 400 MG Orally Act elma Simvastatin 20 MG 1 tablet in the even ing Orally Once a day Active Aspirin 81 MG 1 tablet Orally Once a day Active Melatonin 5 MG 1 tablet at bedtime as needed with food Orally Once a day Active Cyclobenzaprine-Diet Manage Pr 5 MG Orally Active Zolpidem Tartrate 5 MG 1 tablet at bedti me Orally Once a day Active NexIUM 40 MG 1 capsule Orally Onc e a day Active Doxycycline Hyclate 50 MG Orally Not-Taking Hyoscyamine Sulfate 0.125 MG/5ML 5 ml as needed Orally every 4 hrs Active Calcium Carbonate 500 MG 1 tablet Orally Once a day Active Social History Tobacco Use: Social History Observation Description Date Details (start date - stop date) Never Smoker NA - NA Tobacco Use/Smoking Question Answer Notes Are you a: nonsmoker Additional Findings: Tobacco Non-User Current no n-smoker Alcohol Screen Question Answer Notes Did you have a drink containing alcohol in the p ast year? Yes Points 0 Interpretation Negative Tobacco use other than smoking: Question Answer Notes Are you an other tobacco user? No Plan Of Treatment No Information Insurance Providers Payer Name Payer Address Payer Phone Subscriber Number Group Number Insured Name Patient Relationship to Insured Coverage Start Date Coverage End Date [facility] [address] [place] [address] [id number] Bacilio Main Spouse - patient is the spouse of the insured Medical (General) History Medical History History ICD Code Back,Hip,and Knee pain Broken bones/ left wrist, 1972? Measles Mumps Reflux ( GERD) Transfusions Rosacea Restless leg syndrome Menopause Surgical History Surgery Date(Month/Year) section, tubal ligation 05/25/84, 01/09/95 Umbilical hernia Repair 09/1998 panniculectomy 07/2007 hysterectomy, abdominal 08/19/08 breast reduction 01/2009 sphincterotomy 08/2013 Vertical Gastric Banding 01/1998 IVC filter placed post PE 08/2007
--- OUTSIDE RECORDS SUMMARY | 2025-06-01 11:04 | XMS_ITS | Data Portability ---
Author Organization MD - [facility], [facility] Address [address] [place] [address] Care Team Providers Care Brooch And Bracelet Maker Name Role Phone AVNI MORALES Primary Care Provider Assessment Encounter Date Assessment Date Assessment LastModified by Organization Details LastModified Time 08/05/2024 08/05/2024 I am seeing the patient today under the supervision of Elieser who was available but who did not see the patient. The patient presents today for follow-up. Has known trochanteric bursitis of the Bi-lateral hip. Has had previous cortisone injection which gave relief until recently. Has had no recent trauma, no fevers or chills, no neurovascular changes. Presents today for further evaluation. PAST MEDICAL/SURGICAL HISTORY Past medical history is reviewed per intake sheet. PHYSICAL FINDINGS On physical examination, the patient is well appearing and in no apparent distress, alert and oriented x3. Gait is symmetric. Physician examination of the hip reveals the skin to be intact, normal musculature, continued tenderness on palpation over the greater trochanter. No pain with range of motion of the hip, has full range of motion, no crepitus noted with range of motion. No significant pain with straight leg raise. ASSESSMENT Symptomatic trochanteric bursitis of the Bi-lateral L hip. PLAN I reviewed the findings with the patient, discussed different treatment options which included medications physical therapy and injections The patient wishes to proceed with cortisone injection. Please see procedure note. Monitor the effects and follow-up as directed. rip Not available 08/05/2024 13:06:22 11/05/2024 11/05/2024 I am seeing the patient today under the supervision of Dr Mon who was available but who did not see the patient. [email or web address] Not available 11/05/2024 13:22:02 02/02/2025 02/02/2025 I am seeing the patient today under the supervision of Dr Mon who was available but who did not see the patient. Not available 02/02/2025 14:58:22 02/17/2025 02/17/2025 I am seeing the patient today under the supervision of Dr Mon who was available but who did not see the patient. Not available 02/17/2025 08:12:03 05/13/2025 05/13/2025 I am seeing the patient today under the supervision of Dr Mon who was available but who did not see the patient. Not available 05/13/2025 13:37:36 Plan of Treatment Reminders Order Date Submit Date Provider Last Modified By Organization Details Last Modified Time Details Appointments RECHECK 15 2024 01:00P Kasie Villanueva PA-C Not available Not available Not available Lab None recorded . Referral None recorded . Procedures None recorded . Surgeries None recorded . Imaging None recorded . Medication Orders None recorded . Patient TargetsNo targets recorded. Patient InstructionsNo instructions recorded. Reason for Referral None Reported. Results Created Date Observation Date Name Description Value Unit Range Abnormal Flag Note LastModifiedBy Organization Detail LastModifiedTime 07/16/20 24 08/07/2020 imagi ng/di agnos tic resul t No observ ation record ed. [email or web address] Not Available 06/19 03:28:44 07/16/20 24 01/14/2020 imagi ng/di agnos tic resul t No observ ation record ed. [email or web address] Not Available 06/19 03:28:47 07/16/20 24 09/13/2020 imagi ng/di agnos tic resul t No observ ation record ed. [email or web address] Not Available 06/19 03:29:07 Result Notes None recorded. Problems Name Problem SNOMED Code Status Onset Date Resolution Date Notes Provider Name and Address Organization Details Recorded Time No complaints 715349024 Active Status : 'A'; Not Available [facility] 09:17:07 Trochanter ic bursitis of left hip 5511033702404 03 Active 2023 Ankit Atkins PA-C [address], [place], [address] , [facility] 5 13:37:38 Trochanter ic bursitis of right hip 9034531288070 00 Active 2023 Ankit Atkins PA-C [address], [place], [address] , [facility] 4 11:11:57 Sacroiliac disorder 373824142 Active 2024 Ankit Atkins PA-C [address], [place], [address] , [facility] 5 13:37:43 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 Procedures Surgical History Date Name Laterality Status Provider Name and Address Organization Details Recorded Time 05/13/20 25 JZHip Inj completed Ankit Atkins PA-C [address], [place], [address], [facility] 05/13/2025 13:37:30 05/13/20 25 JZHip US Rogelio completed Ankit Atkins PA-C [address], [place], [address], [facility] 05/13/2025 13:37:18 02/18/20 25 JZHip Inj completed Ankit Atkins PA-C [address], [place], [address], [facility] 02/17/2025 08:11:46 02/18/20 25 JZCMC Inj completed Ankit Atkins PA-C [address], [place], [address], [facility] 02/17/2025 08:11:58 02/03/20 25 JZHip Inj completed Ankit Atkins PA-C [address], [place], [address], [facility] 02/02/2025 14:58:49 11/05/20 24 JZHip Inj Rogelio completed Ankit Atkins PA-C [address], [place], [address], [facility] 11/05/2024 13:21:55 08/05/20 24 JZHip Inj Rogelio completed Ankit Atkins PA-C [address], [place], [address], [facility] 08/05/2024 11:11:57 04/22/20 24 JZCMC Inj completed Ankit Atkins PA-C [address], [place], [address], [facility] 04/22/2024 14:42:41 04/22/20 24 JZHip Inj Rogelio completed Natalie Vargas [facility] 04/22/2024 14:01:09 02/22/20 22 Gastrointestinal Surgery completed Aj Tejada [facility] 08/05/2024 13:02:00 09/08/20 13 Other completed Aj Tejada [facility] 08/05/2024 13:02:00 01/31/20 09 Other completed Aj Tejada [facility] 08/05/2024 13:02:00 08/19/20 08 Other completed Aj Tejada [facility] 08/05/2024 13:02:00 04/17/20 07 Other completed Aj Tejada [place] [facility] 08/05/2024 13:02:00 09/17/19 98 Gastrointestinal Surgery completed [facility] 08/05/2024 13:02:00 01/15/19 98 Bariatric Surgery completed [facility] 08/05/2024 13:02:00 01/09/19 95 Other completed [facility] 08/05/2024 13:02:00 05/25/19 84 Other completed [facility] 08/05/2024 13:02:00 Imaging Results None recorded. Procedure Notes None recorded. Medical Equipment None Reported. Allergies Allergen ID Allergen Name Allergen Category Reaction Reaction Severity Criticality Documentation Date Start Date Code Code System Note Provider Name and Address Organization Details Recorded Time 79111 acetamino phen / hydrocodo ne medicatio n Not available Not available Not available 01/19/20242022 17850 2 RxNorm Not Available [facility] 4 14:47:21 18188 acetamino phen / oxycodone medicatio n Not available Not available Not available 01/19/20242019 68297 3 RxNorm Not Available [facility] 4 14:47:21 Medications Name Sig Start Date Stop Date Status Note LastModified by Organization Details LastModified Time ondansetron HCl 4 mg tablet ONE TABLET BY MOUTH THREE TIMES A DAY ONLY NEEDED 08/04 completed Not Available Not Available Not Available simvastatin 20 mg tablet TAKE 1 TABLET BY MOUTH EVERY DAY active Not Available Not Available No t Available oseltamivir 75 mg capsule TAKE 1 CAPSULE BY MOUTH EVERY 12 HOURS FOR 5 DAYS 11/05 completed Not Available Not Available Not Available esomeprazol e magnesium 40 mg capsule,del ayed release TAKE 1 CAPSULE ONCE A DAY 1/2 TO 1 HOUR BEFORE THE MORNING MEAL active Not Available Not Available No t Available metronidazo le 0.75 % topical cream APPLY TO AFFECTED AREAS ON THE FACE AROUND THE NOSE 1 TO 2 TIMES PER DAY active Not Available Not Available No t Available mupirocin 2 % topical ointment APPLY TWICE DAILY TO AFFECTED AREA AROUND THE NOSE NEEDED. 08/04 completed Not Available Not Available Not Available azelaic acid 15 % topical gel 1 applicati on twice a day by topical route. active Not Available Not Available No t Available diclofenac 1 % topical gel APPLY 3-4 GMS TOPICALLY TO AFFECTED AREA 3 TIMES A DAY DIRECTED active Not Available Not Available No t Available Mounjaro 2.5 mg/0.5 mL subcutaneou s pen injector INJECT 1 PEN SUBCUTANE OUSLY EVERY WEEK FOR 4 WEEKS active Not Available Not Available No t Available Vitals Date Recorded Body height Body mass index (BMI) Body weight Provider Name and Address Organization Details Last Updated DateTime 02/17/2025 170.18 cm 29 kg/m2 35712.59 g Aj Palencia [facility] 02/17/2025 08:08:18 Date Recorded Body height Body mass index (BMI) Body weight Provider Name and Address Organization Details Last Updated DateTime 05/13/2025 170.18 cm 29 kg/m2 17238.59 g Aj Palencia [facility] 05/13/2025 13:29:30 Date Recorded Body height Body mass index (BMI) Body weight Provider Name and Address Organization Details Last Updated DateTime 08/05/2024 170.18 cm 29 kg/m2 90916.59 g Aj Tejada [place] [facility] 08/05/2024 13:02:08 Date Recorded Body height Body mass index (BMI) Body weight Provider Name and Address Organization Details Last Updated DateTime 11/05/2024 170.18 cm 29 kg/m2 31332.59 g Aj Palencia [facility] 11/05/2024 13:10:22 Social History Question Answer Notes LastModified by Organizat ion Details LastModified Time Tobacco Smoking Status Never Smoker Aj emanuel [place] [facility] 08/05/2024 13:02:00 What Is Your Relationship Status? [email or web address] Information not available 08/05/2024 Sex: Unknown Functional Status Question Answer Note LastModified by Organizat ion Details LastModified Time How many times per week do you consume alcohol? Less than 1 time per week Information not available 08/05/2024 Do you use any illicit or recreational drugs? No [email or web address] Information not available 08/05/2024 Do you or have you ever used any other forms of tobacco or nicotine? No Information not available 08/05/2024 Do you or have you ever used e-cigarettes or vape? Never used electronic cigarettes [email or web address] Information not available 08/05/2024 Mental Status None recorded. Family History Nothing Reported. Medical History Condition Response Allergies/Hayfever Y Diabetes Y Acid Reflux (GERD) Y Arthritis Y Gynecological HistoryNo gynecological history recorded. Obstetrics History GPAL:G 0 P 0 0 0 0 Past Encounters Encounter ID Performer Location Encounter Start Date Encounter Closed Date Diagnosis/Indication Diagnosis SNOMED-CT Code Diagnosis ICD10 Code Diagnosis Note [id number] Ankit Atkins PA-C [facility] [address] [place] [address] 04/22/2024 13:44:33 05/17/2024 12:52:56 Trochanteric bursitis of left hip 0242415072 47137 M70.62 Trochanter ic bursitis of right hip 3756805590 01395 M70.61 Osteoarthr osis of the carpometacarpal joint of the thumb 91169724 M18.9 [id number] Ankit Atkins PA-C [facility] [address] [place] [address] 08/05/2024 12:53:54 08/25/2024 14:21:19 Trochanteric bursitis of left hip 5537614152 98281 M70.62 Trochanter ic bursitis of right hip 6336214941 13935 M70.61 [id number] Ankit Atkins PA-C [facility] [address] [place] [address] 11/05/2024 13:03:19 11/29/2024 11:31:51 Trochanteric bursitis of left hip 7525403700 63244 M70.62 Trochanter ic bursitis of right hip 4191187941 52700 M70.61 [id number] Ankit Atkins PA-C [facility] [address] [place] [address] 02/02/2025 14:35:17 02/16/2025 10:05:02 Trochanteric bursitis of left hip 6213435150 39218 M70.62 Sacroiliac disorder 2027 35031 M53.3 [id number] [facility] [address] [place] [address] 02/17/2025 07:58:57 02/28/2025 14:12:56 Sacroiliac disorder 271516622 M53.3 Arthritis of first carpometacarpal joint of left hand 1127856713 085171 M18.12 [id number] JUANITA [facility] - [facility] [address] [place] [address] 05/13/2025 13:19:54 05/30/2025 14:10:17 Trochanteric bursitis of right hip 3099209693 65715 M70.61 Trochanter ic bursitis of left hip 4518001944 95957 M70.62 Sacroiliac disorder 2027 69717 M53.3 Health Concerns Section Related Observation LastModified by Organization Detai ls LastModified Time None Recorded Concern Status LastModified by Organization Details LastModified Time None Recorded Advance Directives Directive None Recorded Payers Insurance Date Sequence Insurance Name Policy Number Policy Pinto Covered Member ID Pinto Member ID Guarantor Name 05/30/2025 1 [employer] [employer] [place] Main [id number] [facility] Main OBGyn Episode No OBEpisode recorded.
--- OUTSIDE RECORDS SUMMARY | 2025-06-01 11:05 | XMS_ITS | Clinical Summary ---
Author Organization [facility] Address [address] [place] [address] Care Team Providers Care Residential Program Director Name Role Phone Casey Lee MD Primary Care Provider Social History Tobacco Use Types Packs/Day Years [...] (1 of 2) 2013 Influenza Vaccine (#1) 2025 RSV Adult > 60+ Yrs or Pregn [...] age to complete this topic Care Teams Residential Program Director Relationship Specialty Start Date End Date Casey Lee MD [address] [place] [address] [place] [address] PCP - General Regulatory Attorney 08/31/20
--- OUTSIDE RECORDS SUMMARY | 2025-06-01 11:05 | XMS_ITS | Patient Health Record ---
Author Organization [facility] Address [address] [place] [address] Care Team Providers Care Stack Attendant Name Role Phone Rosa (RETIRED) Casey AVELAR Primary Care Provide r Yariel Glynn Unavailable [phone] Allergies Allergen (clinical drug ingredient) Drug/Non Drug [...] 100 MG 1 capsule Orally hs Active Esomeprazole Magnesium 40 MG 1 capsule 1/2 to 1 hour before morning meal Orally Once a day for 90 days 04/19/2025 Active Melatonin Active Immunizations Vaccine Route Administration Date Status Comme nts Influenza Unknown 12/18/2020 Administered Problems Problem Type SNOMED Code ICD Code Onset Dates Problem Status W/U Status Risk Notes Problem 891950720 Encounter for screening for malignant neoplasm of colon (Z12.11) Active confirmed Problem 232873702 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30) Active confirmed Encounters Encounter Location Date Provider Diagnosis [facility] [address] [place] [address] 06/13/2024 Yariel Hilliard [facility] [address] [place] [address] 04/18/2025 Yariel Hilliard Plan Of Treatment Pending Test Test Name Order Date XR BARIUM SWALLOW-ESOPHAGUS 08/19/2021 XR GI SERIES 08/19/2021 Future Test Test Name Order Date UPPER GI ENDOSCOPY 02/15/2016 UPPER GI ENDOSCOPY 06/14/2021 COLONOSCOPY 06/14/2021 Insurance Providers Payer Name Payer Address Payer Phone Subscriber Number Group Number Insured Name Patient Relationship to Insured Coverage Start Date Coverage End Date [facility] [address] [place], [place] [id number] [phone] [id number] SIMEON SORIANO Self - patient is the insured Medical (General) History Medical History History ICD Code Pulmonary embolus with DVT i n Jul 2007-has IVC filter-occurred 2 months after a panniculectomy EGD 02/28/2010 with a large HH and small area of Madrid's esophagus-no dysplasia Denies TX,DM,CVA,Lung disease,renal dise ase Hyperlipidemia Rectal spasm---She had a col onoscopy in September of 2012 that was negative for polyps, rectal disease, nor any perianal disease that would account for her rectal pain EGD in 03/2013--Madrid's, HH, bx neg for dysplasia Osteoarthritis--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 Reilly hernandez
[2025-06-01 11:11] LABS: Hemoglobin A1C 182.5105 umol/L; Total Hemoglobin (HGBA1C) 3693.9156 umol/L
[2025-06-01 12:04] LABS: Alanine Aminotransferase 24 U/L (0-31); Albumin Level 4.2 g/dL (3.5-5.0); Alkaline Phosphatase 56 U/L (39-117); Anion Gap 12 (12-20); Aspartate Amino Transferase 20 U/L (5-31); Blood Urea Nitrogen 15 mg/dL (9-16); Calcium 9.2 mg/dL (8.4-10.2); Carbon Dioxide 26 mmol/L (22-29); Chloride 107 mmol/L (96-108); Estimated Glomerular Filt Rate > 60; Potassium 3.7 mmol/L (3.3-5.1); Sodium 141 mmol/L (135-145); Total Protein 6.6 g/dL (6.5-8.0)
== END 2025-06-01 10:30 | disposition home or self-care (01) ==
LOC: HO.LAB 10:29
PROVIDERS: PCP Internal Medicine; Visit Provider Internal Medicine
DX: E11.9 Type 2 diabetes mellitus without complications (principal)
CPT/HCPCS: 36415; 80053; 83036

== ENCOUNTER 2025-08-04 10:52 | Outpatient (AMB) | payer BC, SELFPAY ==
[2025-08-04 07:50] VITALS: BP 132/78; PULSE 82; TEMP 36.2; O2SAT 99; BMI 27.2
--- NOTE | 2025-08-04 07:50 | A.OFFPC_ITS ---
Vital Signs 08/04/25 07:50 Height 5 ft 7 in Weight 174 lb BMI 27.2 BP 132/78 Blood Pressure Location Rt brachial Position Sitting Pulse 82 Pulse Source Pulse Oximeter Temp 97.2 F Temp Source Temporal Artery Scan Pulse Oximetry (%) 99 Oxygen Delivery Method Room Air Intake Visit Reasons: Routine / Dr Lee Credit Administrator Required: No Accompanied by: Self / Same As Patient Allergies hydrocodone (From Vicodin) Adverse Reaction (Mild, Verified 08/04/25 07:50) VOMITING oxycodone (From Percocet) Adverse Reaction (Mild, Verified 08/04/25 07:50) VOMITING Medication List - Last Reconciled 08/04/25 by SILVINA Rivera aspirin 81 mg PO DAILY azelaic acid 15% (Finacea) 1 appl topical BID cetirizine (Zyrtec) 10 mg PO DAILY esomeprazole magnesium (Nexium) 40 mg PO DAILY magnesium oxide 400 mg PO DAILY melatonin 10 mg PO BEDTIME PRN multivitamin 1 tab PO DAILY polyethylene glycol 3350 (Miralax) 17 grams PO DAILY sertraline 25 mg PO DAILY simvastatin 20 mg PO DAILY tirzepatide (Mounjaro) 7.5 mg (0.5 mL) subcut QWEEK Tobacco use date assessed: 08/04/25 Dental Screening Dental Screen Date: 08/04/25 Did you have a dental visit in the last 12 months?: Yes Did you have a dental problem in the last 6 months where you did not have access to dental care?: No HPI HPI Comments History of Present Illness Details The patient is a 59-year-old female with DM, HLD, GERD and AR presenting with management of diabetes mellitus, hyperlipidemia, and menopausal symptoms. The patient has been on Mounjaro for diabetes management, although she was not explicitly diagnosed with diabetes initially. Her last hemoglobin A1c was 6.7%, indicating controlled diabetes, with a previous high of 6.9%. She is currently on a 5 mg dose of Mounjaro, with plans to increase to 7.5 mg to aid in further weight loss. The patient is also managing hyperlipidemia with simvastatin, which was recently renewed. She reports no issues with her current medication regimen. Menopausal symptoms include hot flashes and night sweats, which have persisted for over ten years since her hysterectomy in 2007. She has tried Ambien without success and is considering vitamin E and clonidine for symptom management. The patient reports hypertension, with home readings in the 150s to 160s mmHg, although her blood pressure was normal during the visit. She attributes elevated readings to stress, particularly related to her 's health condition. She experiences hair loss, which she attributes to stress, and is taking a supplement to manage it. She has recently started therapy to address stress- related issues. The patient has a history of osteoarthritis, receiving cortisone injections every three months for pain management in her hips and occasionally in her knees and thumbs. She also reports symptoms consistent with tennis elbow, managed with Biofreeze. Patient was informed and verbally consented to the use of an ambient scribe for clinic note documentation during this visit. . [facility] Medical History (Updated 08/04/25 @ 13:55 by SILVINA Rivera) [place] esophagus DVT (deep venous thrombosis) Elevated BP without diagnosis of hypertension Elevated cholesterol GERD (gastroesophageal reflux disease) Hair loss Hiatal hernia Hot flashes Low libido Menopausal vaginal dryness Osteoarthritis Pulmonary embolus Rosacea Symptomatic menopausal or female climacteric states Surgical History H/O colonoscopy (~08/15/21) History of esophagogastroduodenoscopy (EGD) History of partial hysterectomy Hx of abdominal surgery Hx of section Hx of cholecystectomy Hx of laparoscopic gastric banding Hx of rectal sphincterotomy Hx of reduction mammoplasty Hx of umbilical hernia repair S/P insertion of IVC (inferior vena caval) filter Family History Mother Diabetes Hypertension Thyroid condition Father No problems noted. Brother No problems noted. Brother Diabetes Gout Brother No problems noted. Sister Pancreatic cancer Sister Colitis Social History Housing: House Alcohol intake: current Alcohol intake frequency: holidays/special occasions only Patient Tobacco Use Status: Never used Tobacco e-Cigarette/Vaping Use: Never Used Advance Directives Date on File: 02/23/16 service: No Current occupational status: employed Sexual orientation: Straight/Heterosexual Gender identity: Female Cognitive needs: No Hearing needs: No Vision needs: Yes (rx glasses) Questionnaire PHQ-9 Over the last 2 weeks, how often have you been bothered by any of the following problems? 1. Little interest or pleasure in doing things: not at all 2. Feeling down, depressed, or hopeless: nearly every day 3. Trouble falling or staying asleep, or sleeping too much: nearly every day 4. Feeling tired or having little energy: nearly every day 5. Poor appetite or overeating: several days 6. Feeling bad about yourself - or that you are a failure or have let yourself or your family down: not at all 7. Trouble concentrating on things, such as reading the newspaper or watching television: not at all 8. Moving or speaking so slowly that other people could have noticed. Or the opposite - being so fidgety or restless that you have been moving around a lot more than usual: not at all 9. Thoughts that you would be better off or of hurting yourself in some way: not at all Total score: 10 Depression Screening Interpretation: Positive Depression Screening Follow-up: New Medication prescribed Depression Screening Done: Yes Source: Developed by Drs. Yariel Warren, Fiorella Espana, Xavier Hassan and colleagues, with an educational laura from [employer] Thrive Questionnaire Date Thrive assessed: 08/04/25 I am a: Patient Within the past 12 months, did the food you bought not last and you didn't have the money to get more?: Never true Within the past 12 months, did you worry whether your food would run out before you got money to buy more?: Never true Do you have trouble paying for medicines?: No Do you have trouble getting transportation to medical appointments?: No Do you have trouble paying your heating and electricity bill?: No Do you have trouble taking care of your child, family member or friend?: No Do you have trouble with day-to-day activities such as bathing, preparing meals, shopping, managing finances, etc.?: No Are you currently unemployed and looking for a job?: No Are you interested in more education?: No THRIVE Score: 0 AUDIT C Alcohol Use Questionnaire (AUDIT-C) 1. How often do you have a drink containing alcohol?: Monthly or less 2. How many drinks containing alcohol do you have on a typical day when you are drinking?: 1 or 2 3. How often do you have six or more drinks on one occasion?: Less than monthly Total Score: 2 CHAD-7 AMB Questionnaire CHAD-7 Date CHAD - 7 assessed: 08/04/25 Feeling nervous, anxious, or on edge: 0 = Not at all Not being able to stop or control worryin = Not at all Worrying too much about different things: 0 = Not at all Trouble relaxin = Not at all Being so restless that it is hard to sit still: 0 = Not at all Becoming easily annoyed or irritable: 0 = Not at all Feeling afraid as if something awful might happen: 0 = Not at all Total CHAD-7 score (0-4 normal; 5-9 mild; 10-14 moderate; 15-21 severe): 0 Source: Developed by Drs. Yariel Warren, Fiorella Espana, Xavier Hassan and colleagues, with an educational laura from [employer]. Review of Systems Const Details: CONSTITUTIONAL Reports menopausal symptoms including hot flashes and night sweats HEAD/NECK Negative EAR/NOSE/MOUTH/THROAT Negative RESPIRATORY Negative CARDIOVASCULAR Reports hypertension with home readings of 150s to 160s mmHg. Denies chest pain. GASTROINTESTINAL Negative MUSCULOSKELETAL Reports hip pain, elbow pain consistent with tennis elbow, and symptoms of restless legs syndrome. NEUROLOGICAL Negative PSYCHIATRIC Reports stress-related hair loss . Physical exam (Primary Care) Vital Signs: Last Vital Signs Temp 97.2 F 08/04/25 07:50 Pulse 82 08/04/25 07:50 BP 132/78 08/04/25 07:50 Pulse Ox 99 08/04/25 07:50 Oxygen Delivery Method Room Air 08/04/25 07:50 BMI result Body Mass Index 27.2 GENERAL Well developed, Well nourished, in no apparent distress HEENT Head-Normocephalic Neck- Supple, No lymphadenopathy, thyroid WNL RESPIRATORY Normal I:E, Clear to auscultation CARDIOVASCULAR Regular, rate and rhythm, No murmurs or rubs GASTROINTESTINAL Soft, nontender, normal bowel sounds, no masses MUSCULOSKELETAL Back-Decreased ROM, Tender in Lumbar, Tender with motion, Straight leg raise Positive, DTR 2+ symmetrical, Gait normal Joints- no pain swelling or deformity NEUROLOGICAL Gait normal PSYCHIATRIC Oriented to person, place and time Mood and affect Anxious Appearance WNL Speech WNL Thought processes WNL Tobacco/Smoking Status: Tobacco use Status Tobacco use date assessed 08/04/25 08/04/25 07:51 Patient Tobacco Use Status Never used Tobacco 08/04/25 07:51 e-Cigarette/Vaping Use Never Used 08/04/25 07:51 PHQ-9: PHQ-9 Score PHQ-9: Total score 10 08/04/25 11:05 Depression Screening Interpretation: Positive Depression Screening Follow-up: New Medication prescribed Thrive Assessment: Date of Thrive Assessment Date Thrive assessed 08/04/25 08/04/25 07:51 Coding Level of Care Code New Pt New Pt Level 4 (29989) Patient Type New Diagnoses Anxiety F41.9 Type 2 diabetes mellitus without complication, without long-term current use of insulin E11.9 Diabetes mellitus type: type 2 Diabetes mellitus penitentiary insulin use: without continuous churn buttermaker use Diabetes mellitus complication status: without complication GERD (gastroesophageal reflux disease) K21.9 Symptomatic menopausal or female climacteric states N95.1 Hair loss L65.9 Elevated BP without diagnosis of hypertension R03.0 Time Spent (min) 35 Comment Time spent on chart review, medication reconciliation, H&P, patient education, orders Assessment & Plan Assessment & Plan (1) Anxiety: Code(s): F41.9 - Anxiety disorder, unspecified Category: Medical Plan: The patient reports high stress levels due to her 's health and personal health issues, and has recently started therapy to address these concerns.Will treat for anxiety with Sertraline. Patient to follow up in 8 weeks or sooner if symptoms persist or worsen. (2) Diabetes: Code(s): E11.9 - Type 2 diabetes mellitus without complications Category: Medical Qualifiers: Diabetes mellitus type: type 2 Diabetes mellitus continuous churn buttermaker insulin use: without continuous churn buttermaker use Diabetes mellitus complication status: without complication Qualified Code(s): E11.9 - Type 2 diabetes mellitus without complications Plan: The patient is currently on Mounjaro 5 mg for diabetes management, with a controlled hemoglobin A1c of 6.7%. To aid in further weight loss and maintain glycemic control, the dosage will be increased to 7.5 mg. Patient to follow up in 8 weeks or sooner if symptoms persist or worsen. (3) GERD (gastroesophageal reflux disease): Code(s): K21.9 - Gastro-esophageal reflux disease without esophagitis Category: Medical Plan: On Esomeprazole with good results. Patient will continue current medications. Will monitor. Patient will follow up in 6 months. (4) Symptomatic menopausal or female climacteric states: Code(s): N95.1 - Menopausal and female climacteric states Category: Medical Plan: The patient experiences hot flashes and night sweats, persisting for over ten years since her hysterectomy. She has tried Ambien without success and is considering vitamin E and clonidine for symptom management. Will start vitamin E. Patient to follow up in 8 weeks or sooner if symptoms persist or worsen. (5) Hair loss: Code(s): L65.9 - Nonscarring hair loss, unspecified Category: Medical Plan: The patient experiences hair loss, which she attributes to stress, and is taking a supplement to manage it. She has recently started therapy to address stress- related issues. (6) Elevated BP without diagnosis of hypertension: Comment: BP today was 132/78 Code(s): R03.0 - Elevated blood-pressure reading, without diagnosis of hypertension Category: Medical Plan: Patient states BP at home has shown 150-160 systolic. Will continue to monitor. Patient to follow up in 8 weeks or sooner if symptoms persist or worsen. Plan During the visit, we discussed the management of diabetes with Mounjaro, including increasing the dose to 7.5 mg to assist with weight loss. We also reviewed the patient's menopausal symptoms and considered vitamin E and clonidine as potential treatments. The patient was advised to monitor her blood pressure at home and consider stress management strategies. We discussed the potential benefits of sertraline for stress management, and the patient agreed to start this medication. Medications: New sertraline 25 mg PO DAILY 60 tabs 1RF tirzepatide (Mounjaro) dosage adjustment 7.5 mg (0.5 mL) subcut QWEEK 2 mL 1RF for diabetes Discontinued Mounjaro (tirzepatide) Discontinued Reason: Doctor's Order 5 mg (0.5 mL) subcut QWEEK 6 mL 0RF NS E11.9 - Type 2 diabetes mellitus without complications Patient Instructions: - Continue current medications and follow up on the increased Mounjaro dosage. - Monitor blood pressure at home and report any significant changes. - Start vitamin E for menopausal symptoms and consider clonidine if symptoms persist. - Begin sertraline as prescribed for stress management. - Schedule a follow-up appointment in six weeks to assess progress and medication effectiveness.
--- OUTSIDE RECORDS SUMMARY | 2025-08-04 13:00 | XMS_ITS | Encounter Summary ---
Author Organization [facility] Address [address] [place] [address] Phone Care Team Providers Care Board Certified Arts Therapist Name Role Phone Casey Lee MD Primary Care Provider Reason for Referral * Physical Therapy (Routine) - Closed Specialty Diagnoses / Procedures Referred By Contac t Referred To Contact Physical Therapy Diagnoses Encounter for rehabilitation System, Provider Not In, PhD [id number] [place] [address] Phone: tel: Referral ID Status Reason Start Date Expiration Date Visits Re quested Visits Authorized [id number] Closed 06/16/2018 11/16/2018 20 20 Encounter Details Date Type Department Care Team (Latest Contact Info) Description 06/11/2018 Transcribe Orders [facility] [address] [place] [address] Casey Lee MD [address] [place] [address] [place] [address] Encounter for rehabilitation (Primary Dx) Social History Tobacco Use Types Packs/Day Years Used Date Smoking Tobacco: Never Assessed Comments Unknown Sex and Gender Information Value Date Recorded Sex Assigned at Not on file Legal Sex Female 9:43 PM EDT Gender Identity Not on file Sexual Orientation Not on file documented as of this encounter Plan of Treatment Not on file documented as of this encounter Procedures Procedure Name Priority Date/Time Associated Diagnosis Comments AMB REFERRAL TO [facility] PHYSICAL THERAPY Routine 06/16/2018 2:15 PM EDT Encounter for rehabilitation documented in this encounter Results * Ambulatory referral to [facility] Physical Therapy (06/16/2018 2:15 PM EDT) us Provider Not In System PhD AMB [facility] REFERRALS Fin al Result documented in this encounter Visit Diagnoses Diagnosis Encounter for rehabilitation- Primary documented in this encounter Care Teams Board Certified Arts Therapist Relationship Specialty Start Date End Date Casey Lee MD [address] [place] [address] [place] [address] PCP - General Internal Medicine 04/07/18 documented as of this encounter Additional Source Comments The information contained in this document represents components of the legal health record. It is not the complete legal health record.[facility]
--- OUTSIDE RECORDS SUMMARY | 2025-08-04 13:00 | XMS_ITS | Clinical Summary ---
Author Organization [facility] Address [address] [place] [address] Care Team Providers Care Slag Wheeler Name Role Phone Casey Lee MD Primary Care Provider [phone] Social History Tobacco Use Types Packs/Day Years [...] age to complete this topic Care Teams Slag Wheeler Relationship Specialty Start Date End Date Casey Lee MD [address] [place] [address] [place] [address] PCP - General Whipped Topping Finisher 08/31/20
--- OUTSIDE RECORDS SUMMARY | 2025-08-04 13:00 | XMS_ITS | Encounter Summary ---
Author Organization [facility] Address [address] [place] [address] Phone Care Team Providers Care Conservation Engineer Name Role Phone Casey Lee MD Primary Care Provider Reason for Referral * Physical Therapy (Routine) - Closed Specialty Diagnoses / Procedures Referred By Contac t Referred To Contact Physical Therapy Diagnoses Encounter for rehabilitation peroneal tendinitis left foot Procedures physical therapy System, Provider Not In, PhD [id number] [place] [address] [address] [place] [address] Phone: tel: Referral ID Status Reason Start Date Expiration Date Visits Re quested Visits Authorized [id number] Closed 04/21/2018 11/16/2018 25 25 Encounter Details Date Type Department Care Team (Late st Contact Info) Description 04/07/2018 Transcribe Orders [facility] [address] [place] [address] Kaity Montemayor DPM [address] [place] [address] Encounter for rehabilitation (Primary Dx) Social History [...] Date/Time Associated Diagnosis Comments AMB REFERRAL TO [facility] PHYSICAL THERAPY Routine 04/21/2018 6:09 PM EDT Encounter for rehabilitation documented in this encounter Results * Ambulatory referral to [facility] Physical Therapy (04/21/2018 6:09 PM EDT) us Provider Not In System PhD AMB [facility] REFERRALS Fin al Result documented in this encounter Visit Diagnoses Diagnosis Encounter for rehabilitation- Primary documented in this encounter Care Teams Conservation Engineer Relationship Specialty Start Date End Date Casey Lee MD [address] [place] [address] Dr BOYCE [address] [place] [address] PCP - General Internal Medicine 04/07/18 documented as of this encounter Additional Source Comments The information contained in this document represents components of the legal health record. It is not the complete legal health record.[facility]
--- OUTSIDE RECORDS SUMMARY | 2025-08-04 13:00 | XMS_ITS | Clinical Summary ---
Author Organization [facility] Address [address] [place] [address] Phone Care Team Providers Care Bolt Machine Operator Name Role Phone Casey Lee MD Primary Care Provider Social History Tobacco Use Types Packs/Day Years Used Date Smoking Tobacco: Never Assessed Education Answer Date Recorded Are you interested in more education? Not on abbey e 03/14/2023 Are you concerned about learning? Not on file 03/14/2023 No 03/14/2023 No 03/14/2023 Digital Access Answer Date Recorded No 04/12/2023 No 04/12/2023 No 04/12/2023 Reliable internet access at home? Not on file 04/12/2023 Device with a working camera? Not on file Comments Unknown Sex and Gender Information Value Date Recorded Sex Assigned at Not on file Legal Sex Female 9:43 PM EDT Gender Identity Not on file Sexual Orientation Not on file Plan of Treatment Health Maintenance Due Date Last Done Comments Adult Td,Tdap Booster 1963 LIPID PANEL 1963 DEPRESSION SCREENING 1975 SMOKING Hx and SMOKELESS TOBACCO SCREENING 1976 HEPATITIS C SCREENING 1981 HIV ONE-TIME SCREENING (18-6 5 YEARS) 1981 PAP SMEAR 1984 MAMMOGRAM 2003 COLOGUARD 2008 COLONOSCOPY 2008 COLORECTAL CANCER SCREENING 2008 FIT TEST 2008 FOBT 2008 SIGMOIDOSCOPY 2008 VIRTUAL COLONOSCOPY 2008 PNEUMOCOCCAL VACCINES (50+ years) (1 of 1 - PCV) 2013 ZOSTER VACCINES (1 of 2) 2013 INFLUENZA VACCINE (#1) 2025 COVID-19 VACCINE (3 - 2024-2 6 season) 2025 01/08/2021, 12/08/2020 RSV VACCINE (1 - 1-dose 75+ series) 2038 HEPATITIS A VACCINES Aged Out No long er eligible based on patient's age to complete this topic HIB VACCINES Aged Out No longer eligi ble based on patient's age to complete this topic MENINGOCOCCAL VACCINES (ACWY) Aged Out No longer eligible based on patient's age to complete this topic MENINGOCOCCAL VACCINES (B) Aged Out N o longer eligible based on patient's age to complete this topic Medical Devices Not on file Insurance [place] [employer] [facility] [employer] [facility] Apro[employer] [place] [id number] [place] [employer] [employer] [facility] [employer] [facility] [place] [id number] [employer] [facility] Care Teams Bolt Machine Operator Relationship Specialty Start Date End Date Casey Lee MD [address] [place] [address] [place] [address] PCP - General Internal Medicine 04/07/18 Additional Source Comments The information contained in this document represents components of the legal health record. It is not the complete legal health record.[facility]
== END 2025-08-04 11:48 | disposition home or self-care (01) ==
LOC: HO.HMCHD 10:53
PROVIDERS: PCP Internal Medicine; Visit Provider Physician Assistant Medical
DX: F41.9 Anxiety disorder, unspecified (principal); E11.9 Type 2 diabetes mellitus without complications; K21.9 Gastro-esophageal reflux disease without esophagitis; N95.1 Menopausal and female climacteric states; L65.9 Nonscarring hair loss, unspecified; R03.0 Elevated blood-pressure reading, without diagnosis of hypertension

== ENCOUNTER 2025-08-23 14:52 | Outpatient (REF) | payer BC, SELFPAY ==
--- OUTSIDE RECORDS SUMMARY | 2025-08-23 18:12 | XMS_ITS | Patient Health Record ---
Author Organization [facility] Address [address] [facility] [place] [address] Care Team Providers Care Cableway Operator Name Role Phone Casey Lee MD Primary Care Provider Alexsandra licea Carolina Montemayore Unavailable [phone] Allergies Allergen (clinical drug ingredient) Drug/Non Drug [...] Insured Coverage Start Date Coverage End Date [facility] [id number] [place] [address] [id number] Bacilio Main Spouse - patient is the [...]
--- OUTSIDE RECORDS SUMMARY | 2025-08-23 18:12 | XMS_ITS | Clinical Summary ---
Author Organization [facility] Address [address] [place] [address] Phone Care Team Providers Care Automotive Porter Name Role Phone Casey Lee MD Primary [...] topic Medical Devices Not on file Insurance [employer] [facility] [employer] [facility] [employer] [place] [id number] [place] [employer] [facility] [employer] [facility] [place] [id number] [employer] [facility] Care Teams Automotive Porter Relationship Specialty Start Date End Date Casey Lee MD [address] [place] [address] [place] [id number] PCP - General Internal Medicine 04/07/18 Additional Source Comments The information contained in this document represents components of the legal health record. It is not the complete legal health record.[facility]
--- OUTSIDE RECORDS SUMMARY | 2025-08-23 18:12 | XMS_ITS | Encounter Summary ---
Author Organization [facility] Address [address] [place] [address] Phone Care Team Providers Care Geophysical Laboratory Supervisor Name Role Phone Casey Lee MD Primary Care Provider Reason for Referral * Physical Therapy (Routine) - Closed Specialty Diagnoses / Procedures Referred By Contac t Referred To Contact Physical Therapy Diagnoses Encounter for rehabilitation System, Provider Not In, PhD [id number] [place] [address] Phone: tel: Referral ID Status Reason Start Date Expiration Date Visits Re quested Visits Authorized [id number] Closed 06/16/2018 11/16/2018 20 20 Encounter Details Date Type Department Care Team (Latest Contact Info) Description 06/11/2018 Transcribe Orders [facility] [address] [place] [address] Casey Lee MD [address] [place] [address] [place] [address] Encounter for rehabilitation (Primary Dx) Social History [...] Date/Time Associated Diagnosis Comments AMB REFERRAL TO [facility] PHYSICAL THERAPY Routine 06/16/2018 2:15 PM EDT Encounter for rehabilitation documented in this encounter Results * Ambulatory referral to [facility] Physical Therapy (06/16/2018 2:15 PM EDT) us Provider Not In System PhD [facility]B [facility] REFERRALS Fin al Result documented in this encounter Visit Diagnoses Diagnosis Encounter for rehabilitation- Primary documented in this encounter Care Teams Geophysical Laboratory Supervisor Relationship Specialty Start Date End Date Casey Lee MD [address] [place] [address] [place] [address] PCP - General Internal Medicine 04/07/18 documented as of this encounter Additional Source Comments The information contained in this document represents components of the legal health record. It is not the complete legal health record.[facility]
--- OUTSIDE RECORDS SUMMARY | 2025-08-23 18:12 | XMS_ITS | Patient Health Record ---
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 confirmed Problem Gastroesophageal reflux disease (011981560) Gastroesophageal reflux disease (K21.9) Active confirmed Problem 177109021 Gastroesophageal reflux disease without esophagitis (K21.9) Active confirmed Problem 338932479 Barretts esophag us without dysplasia (K22.70) Active confirmed Problem 06912136 Hiatal hernia (K44.9) Active confirmed Problem Benign neoplasm of stomach (29611598) Gastric polyps (K31.7) Active confirmed Problem Madrid esophagus (440131288) 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) Active confirmed Problem Diverticulosis of colon (245340701) Diverticulosis of colon (K57.30) Active confirmed Encounters Encounter Location Date Provider Diagnosis [facility] [address] [place] [address] 04/18/2025 Yariel Hilliard [facility] [address] [place] [address] 07/26/2025 Yariel Hilliard Plan Of Treatment Pending Test Test Name Order Date XR BARIUM SWALLOW-ESOPHAGUS 08/19/2021 XR GI SERIES 08/19/2021 Future Test Test Name Order Date UPPER GI ENDOSCOPY 02/15/2016 UPPER GI ENDOSCOPY 06/14/2021 COLONOSCOPY 06/14/2021 Insurance Providers Payer Name Payer Address Payer Phone Subscriber Number Group Number Insured Name Patient Relationship to Insured Coverage Start Date Coverage End Date [facility] [address] [place], [place] [id number] [phone] [id number] SIMEON SORIANO Self - patient is the insured Medical (General) History Medical History History ICD Code Pulmonary embolus with DVT i n Jul 2007-has IVC filter-occurred 2 months after a panniculectomy EGD 02/28/2010 with a large HH and small area of Madrid's esophagus-no dysplasia Denies [place],DM,CVA,Lung disease,renal dise ase Hyperlipidemia Rectal spasm---She had a col onoscopy in September of 2012 that was negative for polyps, rectal disease, nor any perianal disease that would account for her rectal pain EGD in 03/2013--Madrid's, HH, bx neg for dysplasia Osteoarthritis--sees a sonogram technician Right hip bursitis/arthritis--gets corti sone injections EGD in 2015-HH, no Madrid's, no esophag itis Surgical History Surgery Date(Month/Year) Gastric stapling in 1997 with a vertical band gastroplasty Panniculectomy April 2007 Partial hysterectomy Aug 2008 Breast reduction January 2009 Umbilical hernia surgery section Anal fissure--sphincterotomy by Dr. Reilly hernandez
--- OUTSIDE RECORDS SUMMARY | 2025-08-23 18:12 | XMS_ITS | Encounter Summary ---
Author Organization [facility] Address [address] [place] [address] Phone Care Team Providers Care Manager Marketing Communication Name Role Phone Casey Lee MD Primary Care Provider Reason for Referral * Physical Therapy (Routine) - Closed Specialty Diagnoses / Procedures Referred By Contac t Referred To Contact Physical Therapy Diagnoses Encounter for rehabilitation peroneal tendinitis left foot Procedures physical therapy System, Provider Not In, PhD [facility] [id number] [place] [address] [address] [place] [address] Phone: tel: Referral ID Status Reason Start Date Expiration Date Visits Re quested Visits Authorized [id number] Closed 04/21/2018 11/16/2018 25 25 Encounter Details Date Type Department Care Team (Late st Contact Info) Description 04/07/2018 Transcribe Orders [facility] [address] [place] [address] Kaity Montemayor DPM [address] [place] [address] Encounter for rehabilitation (Primary Dx) Social History [...] Date/Time Associated Diagnosis Comments AMB REFERRAL TO [facility] PHYSICAL THERAPY Routine 04/21/2018 6:09 PM EDT Encounter for rehabilitation documented in this encounter Results * Ambulatory referral to [facility] Physical Therapy (04/21/2018 6:09 PM EDT) us Provider Not In System PhD AMB [facility] REFERRALS Fin al Result documented in this encounter Visit Diagnoses Diagnosis Encounter for rehabilitation- Primary documented in this encounter Care Teams Manager Marketing Communication Relationship Specialty Start Date End Date Casey Lee MD [address] [place] [address] Dr BOYCE [address] [place] [address] PCP - General Internal Medicine 04/07/18 documented as of this encounter Additional Source Comments The information contained in this document represents components of the legal health record. It is not the complete legal health record.[facility]
--- OUTSIDE RECORDS SUMMARY | 2025-08-23 18:13 | XMS_ITS | Clinical Summary ---
Author Organization [facility] Address [address] [place] [address] Care Team Providers Care Cardiac Exercise Physiologist Name Role Phone Casey Lee MD Primary Care Provider [phone] Social History Tobacco Use Types Packs/Day Years [...] age to complete this topic Care Teams Cardiac Exercise Physiologist Relationship Specialty Start Date End Date Casey Lee MD [address] [place] [address] [place] [address] PCP - General Elevator Mechanic Apprentice 08/31/20
== END 2025-08-23 14:53 | disposition home or self-care (01) ==
LOC: HO.MAMMO 14:52
PROVIDERS: PCP Physician Assistant Medical; Visit Provider Physician Assistant Medical
DX: Z12.31 Encounter for screening mammogram for malignant neoplasm of breast (principal)
CPT/HCPCS: 77063; 77067

== ENCOUNTER → 2025-08-23 15:00 | Outpatient (BNV) | payer BC, SELFPAY | PROVIDERS: PCP Physician Assistant Medical; Visit Provider Internal Medicine | DX: Z12.31 Encounter for screening mammogram for malignant neoplasm of breast (principal) | CPT/HCPCS: 77063; 77067 ==

== ENCOUNTER 2025-09-14 10:20 | Outpatient (AMB) | payer BC, SELFPAY ==
[2025-09-14 09:41] VITALS: BP 128/80; PULSE 73; TEMP 36.3; O2SAT 99; BMI 26.8
--- NOTE | 2025-09-14 09:41 | A.OFFPC_ITS ---
Vital Signs 09/14/25 09:41 Height 5 ft 7 in Weight 171 lb 2 oz BMI 26.8 BP 128/80 Blood Pressure Location Lt brachial Position Sitting Pulse 73 Pulse Source Pulse Oximeter Temp 97.3 F Temp Source Temporal Artery Scan Pulse Oximetry (%) 99 Oxygen Delivery Method Room Air Intake Visit Reasons: 6 weeks follow up Director Of Guidance Required: No Accompanied by: Self / Same As Patient Allergies hydrocodone (From Vicodin) Adverse Reaction (Mild, Verified 09/14/25 09:42) VOMITING oxycodone (From Percocet) Adverse Reaction (Mild, Verified 09/14/25 09:42) VOMITING Medication List - Last Reconciled 09/25/25 by SILVINA Rivera aspirin 81 mg PO DAILY azelaic acid 15% (Finacea) 1 appl topical BID cetirizine (Zyrtec) 10 mg PO DAILY esomeprazole magnesium (Nexium) 40 mg PO DAILY melatonin 10 mg PO BEDTIME PRN multivitamin 1 tab PO DAILY polyethylene glycol 3350 (Miralax) 17 grams PO DAILY simvastatin 20 mg PO DAILY tirzepatide (Mounjaro) 10 mg (0.5 mL) subcut QWEEK vitamin E (dl, acetate) 180 mg PO DAILY Tobacco use date assessed: 09/14/25 Dental Screening Dental Screen Date: 09/14/25 Did you have a dental visit in the last 12 months?: Yes Did you have a dental problem in the last 6 months where you did not have access to dental care?: No HPI HPI Comments History of Present Illness Details The patient is a 59-year-old female with DM, HLD, Anxiety and GERD presenting to establish care and with concerns about hair loss and stress management. The patient reports significant hair loss, which she attributes to stress and medication side effects. She declined the use of sertraline due to concerns about hair loss as a side effect, which she believes would exacerbate her stress. She regularly sees a conference center manager and is currently using an yfnw-jvg-yghcaks supplement containing minoxidil, vitamins B and C, and zinc. However, she is uncertain about its effectiveness due to her concurrent use of a GLP-1 receptor agonist, Mounjaro. The patient has a history of bariatric surgery and has been advised by her fire investigation lieutenant to take sublingual vitamin B12 due to potential deficiencies. She has not yet started this supplementation pending a blood test to check her B12 levels. The patient also reports a history of gallbladder removal and has been advised to take ox bile supplements, which she has not started. The patient experiences restless legs and has tried various treatments, including magnesium supplementation and a Parkinson's medication, without relief. Gabapentin was prescribed by her steam drier tender for arthritis but caused excessive drowsiness, making it unsuitable for her. She has a history of low iron levels, which previously required blood transfusions, and plans to have her iron levels checked. The patient reports hip pain, which was initially alleviated by a supplement containing turmeric but has since worsened. She receives cortisone injections every three months and has been informed that she may eventually require a hip replacement. Additionally, she has golfer's elbow, for which she received an injection and was advised to perform exercises once the pain subsides. Medical History: - History of bariatric surgery - History of gallbladder removal - History of pulmonary embolism Surgical History: - Bariatric surgery - Cholecystectomy Medications: - Mounjaro (GLP-1 receptor agonist) for weight management - Jlwn-spb-qadunce supplement containing minoxidil, vitamins B and C, and zinc for hair loss - Provitalize containing turmeric for me nopause symptoms and hip pain Patient was informed and verbally consented to the use of an ambient scribe for clinic note documentation during this visit. [facility] Medical History (Updated 09/25/25 @ 00:48 by SILVINA Rivera) Madrid esophagus DVT (deep venous thrombosis) Elevated BP without diagnosis of hypertension Elevated cholesterol GERD (gastroesophageal reflux disease) Hair loss Hiatal hernia Hot flashes Low libido Low vitamin B12 level MDD (major depressive disorder) Medication management Menopausal vaginal dryness Obesity (BMI 30.0-34.9) Osteoarthritis Pulmonary embolus Restless leg Rosacea Symptomatic menopausal or female climacteric states Surgical History H/O colonoscopy (~08/15/21) History of esophagogastroduodenoscopy (EGD) History of partial hysterectomy Hx of abdominal surgery Hx of section Hx of cholecystectomy Hx of laparoscopic gastric banding Hx of rectal sphincterotomy Hx of reduction mammoplasty Hx of umbilical hernia repair S/P insertion of IVC (inferior vena caval) filter Family History (Updated 09/14/25 @ 10:37 by Ellie Peters MA) Mother Diabetes Hypertension Thyroid condition Father Substance abuse Brother No problems noted. Brother Diabetes Gout Brother No problems noted. Sister Pancreatic cancer Sister Colitis Social History Housing: House Alcohol intake: current Alcohol intake frequency: holidays/special occasions only Patient Tobacco Use Status: Never used Tobacco e-Cigarette/Vaping Use: Never Used Advance Directives Date on File: 02/23/16 service: No Current occupational status: employed Sexual orientation: Straight/Heterosexual Gender identity: Female Cognitive needs: No Hearing needs: No Vision needs: Yes (rx glasses) Questionnaire PHQ-9 Over the last 2 weeks, how often have you been bothered by any of the following problems? 1. Little interest or pleasure in doing things: not at all 2. Feeling down, depressed, or hopeless: nearly every day 3. Trouble falling or staying asleep, or sleeping too much: nearly every day (Trouble staying asleep and falling asleep) 4. Feeling tired or having little energy: nearly every day 5. Poor appetite or overeating: nearly every day 6. Feeling bad about yourself - or that you are a failure or have let yourself or your family down: not at all 7. Trouble concentrating on things, such as reading the newspaper or watching television: not at all 8. Moving or speaking so slowly that other people could have noticed. Or the opposite - being so fidgety or restless that you have been moving around a lot more than usual: not at all 9. Thoughts that you would be better off or of hurting yourself in some way: not at all Total score: 12 Depression Screening Interpretation: Positive Depression Screening Follow-up: Follow-up Visit Requested and Declines treatment Depression Screening Done: Yes Source: Developed by Drs. Yariel Warren, Fiorella Espana, Xavier Hassan and colleagues, with an educational laura from [employer]. Thrive Questionnaire Date Thrive assessed: 09/14/25 I am a: Patient Within the past 12 months, did the food you bought not last and you didn't have the money to get more?: Never true Within the past 12 months, did you worry whether your food would run out before you got money to buy more?: Never true Do you have trouble paying for medicines?: No Do you have trouble getting transportation to medical appointments?: No Do you have trouble paying your heating and electricity bill?: No Do you have trouble taking care of your child, family member or friend?: No Do you have trouble with day-to-day activities such as bathing, preparing meals, shopping, managing finances, etc.?: No Are you currently unemployed and looking for a job?: No Are you interested in more education?: No THRIVE Score: 0 AUDIT C Alcohol Use Questionnaire (AUDIT-C) 1. How often do you have a drink containing alcohol?: Monthly or less 2. How many drinks containing alcohol do you have on a typical day when you are drinking?: 1 or 2 3. How often do you have six or more drinks on one occasion?: Less than monthly Total Score: 2 CHAD-7 AMB Questionnaire CHAD-7 Date CHAD - 7 assessed: 09/14/25 Feeling nervous, anxious, or on edge: 0 = Not at all Not being able to stop or control worryin = Nearly every day Worrying too much about different things: 3 = Nearly every day Trouble relaxin = Nearly every day Being so restless that it is hard to sit still: 0 = Not at all Becoming easily annoyed or irritable: 0 = Not at all Feeling afraid as if something awful might happen: 0 = Not at all Total CHAD-7 score (0-4 normal; 5-9 mild; 10-14 moderate; 15-21 severe): 9 Source: Developed by Drs. Yariel Warren, Fiorella Espana, Xavier Hassan and colleagues, with an educational laura from [employer]. CHAD-7 Assessment Billing CHAD-7 Assessment Tool: CHAD-7 Assessment 92696 Review of Systems Narrative - Dermatological: Reports hair loss and scalp changes. - Musculoskeletal: Reports hip pain and golfer's elbow. - Neurological: Reports restless legs. - Gastrointestinal: Reports issues with digestion post-cholecystectomy. Physical exam (Primary Care) Vital Signs: Last Vital Signs Temp 97.3 F 09/14/25 09:41 Pulse 73 09/14/25 09:41 BP 128/80 09/14/25 09:41 Pulse Ox 99 09/14/25 09:41 Oxygen Delivery Method Room Air 09/14/25 09:41 BMI result Body Mass Index 26.8 GENERAL Well developed, Well nourished, in no apparent distress HEENT Head-Normocephalic Neck- Supple, No lymphadenopathy, thyroid WNL RESPIRATORY Normal I:E, Clear to auscultation CARDIOVASCULAR Regular, rate and rhythm, No murmurs or rubs GASTROINTESTINAL Soft, nontender, normal bowel sounds, no masses MUSCULOSKELETAL Back- nontender Joints- no swelling or deformity NEUROLOGICAL Gait normal PSYCHIATRIC Oriented to person, place and time Mood and affect depression and anxiety Appearance WNL Speech WNL Thought processes WNL Tobacco/Smoking Status: Tobacco use Status Tobacco use date assessed 09/14/25 09/14/25 09:43 Patient Tobacco Use Status Never used Tobacco 09/14/25 09:43 e-Cigarette/Vaping Use Never Used 09/14/25 09:43 PHQ-9: PHQ-9 Score PHQ-9: Total score 12 09/14/25 10:52 Depression Screening Interpretation: Positive Depression Screening Follow-up: Follow-up Visit Requested and Declines treatment Thrive Assessment: Date of Thrive Assessment Date Thrive assessed 09/14/25 09/14/25 09:43 Coding Level of Care Code Established Pt Est Pt Level 4 (09825) Established Pt Complex EM visit Add On G2211 Patient Type Established Diagnoses Hyperlipidemia, unspecified hyperlipidemia type E78.5 Hyperlipidemia type: unspecified Type 2 diabetes mellitus without complication, without long-term current use of insulin E11.9 Diabetes mellitus type: type 2 Diabetes mellitus senior care insulin use: without senior care use Diabetes mellitus complication status: without complication Hair loss L65.9 Restless leg G25.81 Osteoarthritis M19.90 Anxiety F41.9 MDD (major depressive disorder) F32.9 Additional Codes CHAD-7 Assessment Billing - CHAD-7 Assessment Tool: CHAD-7 Assessment 63328 ([id number]) Time Spent (min) 35 Comment Time spent on chart review, medication reconciliation, H&P, patient education, orders. Assessment & Plan Assessment & Plan (1) Hyperlipidemia: Code(s): E78.5 - Hyperlipidemia, unspecified Category: Medical Qualifiers: Hyperlipidemia type: unspecified Qualified Code(s): E78.5 - Hyperlipidemia, unspecified Plan: Patient to have labs. Patient will continue current medications. Will monitor. Patient will follow up in 6 weeks. (2) Diabetes: Code(s): E11.9 - Type 2 diabetes mellitus without complications Category: Medical Qualifiers: Diabetes mellitus type: type 2 Diabetes mellitus medical terminologist insulin use: without medical terminologist use Diabetes mellitus complication status: without complication Qualified Code(s): E11.9 - Type 2 diabetes mellitus without complications Plan: The patient has lost weight, which she attributes to the use of Mounjaro. Despite this, she feels her appetite is not well-controlled, particularly due to stress. The plan includes monitoring her weight and considering an increase in Mounjaro dosage to better manage her appetite. Patient to have labs. Patient will continue current medications. Will monitor. Patient will follow up in 6 weeks. (3) Hair loss: Code(s): L65.9 - Nonscarring hair loss, unspecified Category: Medical Plan: The patient is experiencing significant hair loss, which she attributes to stress and medication side effects. She has declined the use of sertraline due to concerns about hair loss as a side effect. She is currently using an mztp-hxh-rwwoqsw supplement containing minoxidil, vitamins B and C, and zinc. The effectiveness of this treatment is uncertain due to her concurrent use of Mounjaro, a GLP-1 receptor agonist. The plan includes continuing regular derma tology visits and considering alternative treatments if necessary. (4) Restless leg: Code(s): G25.81 - Restless legs syndrome Category: Medical Plan: The patient experiences restless legs and has tried various treatments, including magnesium supplementation and a Parkinson's medication, without relief. Gabapentin was prescribed but caused excessive drowsiness. The plan includes checking her iron levels and considering alternative treatments for restless legs. (5) Osteoarthritis: Code(s): M19.90 - Unspecified osteoarthritis, unspecified site Category: Medical Plan: The patient reports hip pain, initially alleviated by a supplement containing turmeric but has since worsened. She receives cortisone injections every three months and may eventually require a hip replacement. The plan includes continuing cortisone injections and monitoring the need for surgical intervention. (6) Anxiety: Code(s): F41.9 - Anxiety disorder, unspecified Category: Medical Plan: The patient reports significant stress, which is exacerbated by her hair loss and weight management challenges. She is a stress eater and has a history of being conditioned to eat in response to stress from childhood. Her 's health issues also contribute to her stress levels. The plan includes addressing stress through lifestyle modifications and considering psychological support if needed. Patient to follow up in 6 weeks or sooner if symptoms persist or worsen. (7) MDD (major depressive disorder): Code(s): F32.9 - Major depressive disorder, single episode, unspecified Category: Medical Plan: The patient reports significant stress, which is exacerbated by her hair loss and weight management challenges. She is a stress eater and has a history of being conditioned to eat in response to stress from childhood. Her 's health issues also contribute to her stress levels. The plan includes addressing stress through lifestyle modifications and considering psychological support if needed. Patient to follow up in 6 weeks or sooner if symptoms persist or worsen. Plan During the visit, we discussed the patient's concerns about hair loss and stress management. I advised her to continue her dermatology visits and consider alternative treatments if necessary. We also talked about her weight management with Mounjaro and the possibility of increasing the dosage to better control her appetite. For her restless legs, we plan to check her iron levels and explore other treatment options. We also discussed her hip pain management with corti sone injections and the potential need for a hip replacement in the future. Additionally, we addressed her golfer's elbow and the importance of starting exercises once the pain subsides. Follow-up in six weeks was recommended to review her progress and adjust the treatment plan as needed. Orders: Orders Ferritin 09/14/25 G25.81 - Restless legs syndrome IRON PROFILE 09/14/25 G25.81 - Restless legs syndrome TSH reflex Free T4 09/14/25 G25.81 - Restless legs syndrome Hemoglobin A1c 09/14/25 E11.9 - Type 2 diabetes mellitus without complications, Z79.899 - Other medical terminologist (current) drug therapy Vitamin B12 and Folate 09/14/25 E53.8 - Deficiency of other specified B group vitamins Medications: New tirzepatide (Mounjaro) 10 mg (0.5 mL) subcut QWEEK 2 mL 0RF for diabetes and weight loss Discontinued tirzepatide dosage adjustment Discontinued Reason: Doctor's Order 7.5 mg (0.5 mL) subcut QWEEK 2 mL 1RF for diabetes Patient Instructions: - Continue regular dermatology visits for hair loss management. - Monitor weight and consider dietary adjustments as needed. - Follow up in six weeks to review progress and adjust treatment plan. - Start exercises for golfer's elbow once pain decreases.
--- OUTSIDE RECORDS SUMMARY | 2025-09-14 12:48 | XMS_ITS | Clinical Summary ---
Author Organization [facility] Address [address] [place] [address] Phone Care Team Providers Care Certified Medical Technician Assistant Name Role Phone Casey Lee MD Primary [...] topic Medical Devices Not on file Insurance [employer] [facility] [employer] [place] AD[facility] [place] [id number] COEUR D ALENE [employer] [facility] Likez [facility] 40 ARODAADAM [facility] [employer] [place] ADAM [place] [id number] Likez [facility] Care Teams Certified Medical Technician Assistant Relationship Specialty Start Date End Date Casey Lee MD [address] [place] [address] [place] [address] PCP - General Internal Medicine 04/07/18 Additional Source Comments The information contained in this document represents components of the legal health record. It is not the complete legal health record.[facility]
--- OUTSIDE RECORDS SUMMARY | 2025-09-14 12:48 | XMS_ITS | Patient Health Record ---
Author Organization [facility] Address [address] [facility] [place] [address] Care Team Providers Care Operations And Maintenance Manager Name Role Phone Casey Lee MD Primary Care Provider Alexsandra licea Carolina Montemayore Unavailable [phone] Allergies Allergen (clinical drug ingredient) Drug/Non Drug [...] Insured Coverage Start Date Coverage End Date [facility] [id number] [place] [address] [id number] Bacilio Main Spouse - patient is the [...]
--- OUTSIDE RECORDS SUMMARY | 2025-09-14 12:48 | XMS_ITS | Encounter Summary ---
Author Organization [facility] Address [address] [place] [address] Phone Care Team Providers Care Vocational Education Teacher Name Role Phone Casey Lee MD Primary Care Provider Reason for Referral * Physical Therapy (Routine) - Closed Specialty Diagnoses / Procedures Referred By Contac t Referred To Contact Physical Therapy Diagnoses Encounter for rehabilitation System, Provider Not In, PhD [id number] [place] [address] Phone: tel: Referral ID Status Reason Start Date Expiration Date Visits Re quested Visits Authorized [id number] Closed 06/16/2018 11/16/2018 20 20 Encounter Details Date Type Department Care Team (Latest Contact Info) Description 06/11/2018 Transcribe Orders [facility] [address] [place] [address] Casey Lee MD [address] [place] [address] [place] [address] Encounter for rehabilitation (Primary Dx) Social History [...] Date/Time Associated Diagnosis Comments AMB REFERRAL TO [facility] PHYSICAL THERAPY Routine 06/16/2018 2:15 PM EDT Encounter for rehabilitation documented in this encounter Results * Ambulatory referral to [facility] Physical Therapy (06/16/2018 2:15 PM EDT) us Provider Not In System PhD [facility]B [facility] REFERRALS Fin al Result documented in this encounter Visit Diagnoses Diagnosis Encounter for rehabilitation- Primary documented in this encounter Care Teams Vocational Education Teacher Relationship Specialty Start Date End Date Casey Lee MD [address] [place] [address] [place] [address] PCP - General Internal Medicine 04/07/18 documented as of this encounter Additional Source Comments The information contained in this document represents components of the legal health record. It is not the complete legal health record.[facility]
--- OUTSIDE RECORDS SUMMARY | 2025-09-14 12:49 | XMS_ITS | Encounter Summary ---
Author Organization [facility] Address [address] [place] [address] Phone Care Team Providers Care Dock Attendant Name Role Phone Casey Lee MD Primary Care Provider Reason for Referral * Physical Therapy (Routine) - Closed Specialty Diagnoses / Procedures Referred By Contac t Referred To Contact Physical Therapy Diagnoses Encounter for rehabilitation peroneal tendinitis left foot Procedures physical therapy System, Provider Not In, PhD Partners [id number] [place] [address] [address] [place] [address] Phone: tel: Referral ID Status Reason Start Date Expiration Date Visits Re quested Visits Authorized [id number] Closed 04/21/2018 11/16/2018 25 25 Encounter Details Date Type Department Care Team (Late st Contact Info) Description 04/07/2018 Transcribe Orders [facility] [address] [place] [address] Kaity Montemayor DPM [address] [place] [address] Encounter for rehabilitation (Primary Dx) Social History [...] Date/Time Associated Diagnosis Comments AMB REFERRAL TO [facility] PHYSICAL THERAPY Routine 04/21/2018 6:09 PM EDT Encounter for rehabilitation documented in this encounter Results * Ambulatory referral to [facility] Physical Therapy (04/21/2018 6:09 PM EDT) us Provider Not In System PhD AMB [facility] REFERRALS Fin al Result documented in this encounter Visit Diagnoses Diagnosis Encounter for rehabilitation- Primary documented in this encounter Care Teams Dock Attendant Relationship Specialty Start Date End Date Casey Lee MD [address] [place] [address] Dr BOYCE [address] [place] [address] PCP - General Internal Medicine 04/07/18 documented as of this encounter Additional Source Comments The information contained in this document represents components of the legal health record. It is not the complete legal health record.[facility]
--- OUTSIDE RECORDS SUMMARY | 2025-09-14 12:49 | XMS_ITS | Clinical Summary ---
Author Organization [facility] Address [address] [place] [address] Care Team Providers Care Senior Customer Service Representative Name Role Phone Casey Lee MD Primary Care Provider [phone] Social History Tobacco Use Types Packs/Day Years [...] age to complete this topic Care Teams Senior Customer Service Representative Relationship Specialty Start Date End Date Casey Lee MD [address] [place] [address] [place] [address] PCP - General Wallpaper Hanger 08/31/20
--- OUTSIDE RECORDS SUMMARY | 2025-09-14 12:49 | XMS_ITS | Patient Health Record ---
Author Organization [facility] Address [address] [place] [address] Care Team Providers Care Numerical Control Programmer Name Role Phone Rosa (RETIRED) Casey AVELAR Primary Care Provide r Yariel Glynn [phone] Allergies Allergen (clinical drug ingredient) Drug/Non Drug [...] 1 CAPSULE ONCE DAILY Orally Once a day; Duration: 90 days Active Finacea Active Doxycycline (Rosacea) 50 mg Active Gabapentin 100 MG 1 capsule Orally hs Active Esomeprazole Magnesium 40 MG 1 capsule 1/2 to 1 hour before morning meal Orally Once a day; Duration: 90 days 04/19/2025 Active Melatonin Active Immunizations Vaccine Route Administration Date Status Comme nts Influenza Unknown 12/18/2020 Administered Problems Problem Type SNOMED Code ICD Code Onset Dates Problem Status W/U Status Risk Notes Problem Screening for malignant neoplasm of colon (124723795) Encounter for screening for malignant neoplasm of colon (Z12.11) Active confirmed Problem Madrid's esophagus (774747917) 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) Active confirmed Problem Gastroesophageal reflux disease (102309623) Gastroesophageal reflux disease (K21.9) Active confirmed Problem Gastroesophageal reflux disease without esophagitis (572071740) Gastroesophageal reflux disease without esophagitis (K21.9) Active confirmed Problem Madrid's esophagus (687724995) Barretts esophagus without dysplasia (K22.70) Active confirmed Problem Hiatal hernia (58905030) Hiatal hernia (K44.9) Active confirmed Problem Benign neoplasm of stomach (55100265) Gastric polyps (K31.7) Active confirmed Problem Madrid esophagus (502785341) 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) Active confirmed Problem Diverticulosis of colon (031928034) Diverticulosis of colon (K57.30) Active confirmed Encounters Encounter Location Date Provider Diagnosis [facility] [address] [place] [address] 04/18/2025 Yariel Hilliard [facility] [address] [place] [address] 07/26/2025 Yariel Hilliard Plan Of Treatment Pending Test Test Name Order Date XR BARIUM SWALLOW-ESOPHAGUS 08/19/2021 XR GI SERIES 08/19/2021 Future Test Test Name Order Date UPPER GI ENDOSCOPY 02/15/2016 UPPER GI ENDOSCOPY 06/14/2021 COLONOSCOPY 06/14/2021 Insurance Providers Payer Name Payer Address Payer Phone Subscriber Number Group Number Insured Name Patient Relationship to Insured Coverage Start Date Coverage End Date [facility] [address] [place], [place] [id number] [phone] [id number] SIMEON SORIANO Self - patient is the insured Medical (General) History Medical History History ICD Code Pulmonary embolus with DVT i n Jul 2007-has IVC filter-occurred 2 months after a panniculectomy EGD 02/28/2010 with a large HH and small area of Madrid's esophagus-no dysplasia Denies DC,DM,CVA,Lung disease,renal dise ase Hyperlipidemia Rectal spasm---She had a col onoscopy in September of 2012 that was negative for polyps, rectal disease, nor any perianal disease that would account for her rectal pain EGD in 03/2013--Madrid's, HH, bx neg for dysplasia Osteoarthritis--sees a infrastructure administrator Right hip bursitis/arthritis--gets corti sone injections EGD in 2015-HH, no Madrid's, no esophag itis Surgical History Surgery Date(Month/Year) Gastric stapling in 1997 with a vertical band gastroplasty Panniculectomy April 2007 Partial hysterectomy Aug 2008 Breast reduction January 2009 Umbilical hernia surgery section Anal fissure--sphincterotomy by Dr. Reilly hernandez
== END 2025-09-14 11:15 | disposition home or self-care (01) ==
LOC: HO.HMCHD 10:21
PROVIDERS: PCP Physician Assistant Medical; Visit Provider Physician Assistant Medical
DX: E78.5 Hyperlipidemia, unspecified (principal); E11.9 Type 2 diabetes mellitus without complications; L65.9 Nonscarring hair loss, unspecified; G25.81 Restless legs syndrome; M19.90 Unspecified osteoarthritis, unspecified site; F41.9 Anxiety disorder, unspecified; F32.9 Major depressive disorder, single episode, unspecified

== ENCOUNTER → 2025-09-14 10:20 | Outpatient (BNVA) | payer BC, SELFPAY | PROVIDERS: PCP Physician Assistant Medical; Visit Provider Physician Assistant Medical | DX: K21.9 Gastro-esophageal reflux disease without esophagitis (principal); E11.9 Type 2 diabetes mellitus without complications; E78.5 Hyperlipidemia, unspecified; G25.81 Restless legs syndrome; L65.9 Nonscarring hair loss, unspecified; M19.90 Unspecified osteoarthritis, unspecified site; F41.9 Anxiety disorder, unspecified; F32.9 Major depressive disorder, single episode, unspecified; Z98.84 Bariatric surgery status | CPT/HCPCS: 96127 ==

== ENCOUNTER 2025-09-14 11:19 | Outpatient (REF) | payer BC, SELFPAY ==
[2025-09-14 13:58] LABS: Iron 183 mcg/dL (30-160); Percent Iron Saturation 56 % (15-50); Total Iron Binding Capacity 325 mcg/dL (228-428); Unsaturated Iron Binding 142 ug/dL
[2025-09-14 14:00] LABS: Ferritin 48 ng/mL (10-250)
[2025-09-14 14:17] LABS: Folate 11.9 ng/mL (> or = 4.0); Vitamin B12 660 pg/mL (200-900)
== END 2025-09-14 11:20 | disposition home or self-care (01) ==
LOC: HO.10HDL 11:19
PROVIDERS: Visit Provider Physician Assistant Medical
DX: G25.81 Restless legs syndrome (principal); E11.9 Type 2 diabetes mellitus without complications; E53.8 Deficiency of other specified B group vitamins; Z79.899 Other long term (current) drug therapy
CPT/HCPCS: 36415; 82607; 82728; 82746; 83036; 83540; 84443

== ENCOUNTER 2025-10-26 09:11 | Outpatient (AMB) | payer BC, SELFPAY ==
[2025-10-26 09:22] VITALS: BP 130/76; TEMP 36.6; BMI 25.4
--- NOTE | 2025-10-26 09:22 | MHC.PC.OV ---
Vital Signs 10/26/25 09:22 Height 5 ft 7 in Weight 162 lb BMI 25.4 BP 130/76 Blood Pressure Location Rt brachial Position Sitting Temp 97.9 F Temp Source Temporal Artery Scan Intake Visit Reasons: 6 weeks follow up Clock Maker Required: No Accompanied by: Self / Same As Patient Allergies hydrocodone (From Vicodin) Adverse Reaction (Mild, Verified 10/26/25 09:23) VOMITING oxycodone (From Percocet) Adverse Reaction (Mild, Verified 10/26/25 09:23) VOMITING Medication List - Last Reconciled 10/26/25 by SILVINA Rivera aspirin 81 mg PO DAILY azelaic acid 15% (Finacea) 1 appl topical BID cetirizine (Zyrtec) 10 mg PO DAILY esomeprazole magnesium (Nexium) 40 mg PO DAILY melatonin 10 mg PO BEDTIME PRN multivitamin 1 tab PO DAILY polyethylene glycol 3350 (Miralax) 17 grams PO DAILY simvastatin 20 mg PO DAILY tirzepatide (Mounjaro) 10 mg (0.5 mL) subcut QWEEK vitamin E (dl, acetate) 180 mg PO DAILY Tobacco use date assessed: 10/26/25 Dental Screening Dental Screen Date: 10/26/25 Did you have a dental visit in the last 12 months?: Yes Did you have a dental problem in the last 6 months where you did not have access to dental care?: No HPI HPI Comments History of Present Illness Details The patient is a 59 year old female with DM, HLD, Anxiety and GERD presenting for management of hair loss, facial hair growth, and type 2 diabetes. The patient reports ongoing hair loss with breakage and a bald spot. She has also noticed a significant increase in facial hair, including on the side of her face and a mustache, requiring her to pluck and shave. She is currently using a HERS supplement containing minoxidil and biotin but is not satisfied with the results. Regarding her type 2 diabetes, she was diagnosed directly without a prior prediabetic stage. She has been on Mounjaro and recently increased her dose to 10 mg. On this dose, she experiences decreased appetite, and more recently, severe diarrhea. Her recent A1c was 6.4%. She has a history of gestational diabetes with both of her children. She notes a history of historically low iron, though recent labs were normal, and reports easy bruising. Medical History: - Type 2 diabetes mellitus, with a recent A1c of 6.4%. - Alopecia - Hirsutism - History of gestational diabetes - History of low iron - Menopause, perimenopausal for approximately 17 years. Surgical History: - Hysterectomy in 2007, ovaries preserved - History of weight loss surgery Medications: - Mounjaro (tirzepatide) 10 mg weekly injection - HERS supplement (contains minoxidil and biotin) - Sertraline: Patient denies taking this medication. Family History: - Mother: Had type 2 diabetes. - Older brother: Takes metformin, suggesting a history of diabetes. - Father: Had a full head of hair at in his 80s. Patient was informed and verbally consented to the use of an ambient scribe for clinic note documentation during this visit. [facility] Medical History MDD (major depressive disorder) Low vitamin B12 level Obesity (BMI 30.0-34.9) Medication management Restless leg Elevated BP without diagnosis of hypertension Symptomatic menopausal or female climacteric states Hair loss Hot flashes Menopausal vaginal dryness Low libido Madrid esophagus Hiatal hernia GERD (gastroesophageal reflux disease) Rosacea Osteoarthritis Elevated cholesterol Pulmonary embolus DVT (deep venous thrombosis) Surgical History Hx of cholecystectomy Hx of rectal sphincterotomy Hx of section Hx of umbilical hernia repair Hx of reduction mammoplasty History of partial hysterectomy Hx of abdominal surgery Hx of laparoscopic gastric banding H/O colonoscopy (~08/15/21) History of esophagogastroduodenoscopy (EGD) S/P insertion of IVC (inferior vena caval) filter Family History Mother Diabetes Hypertension Thyroid condition Father Substance abuse Brother No problems noted. Brother Diabetes Gout Brother No problems noted. Sister Pancreatic cancer Sister Colitis Social History Housing: House Alcohol intake: current Alcohol intake frequency: holidays/special occasions only Patient Tobacco Use Status: Never used Tobacco e-Cigarette/Vaping Use: Never Used Advance Directives Date on File: 02/23/16 service: No Current occupational status: employed Sexual orientation: Straight/Heterosexual Gender identity: Female Cognitive needs: No Hearing needs: No Vision needs: Yes (rx glasses) Questionnaire Thrive Questionnaire Date Thrive assessed: 09/14/25 AUDIT C Alcohol Use Questionnaire (AUDIT-C) 2. How many drinks containing alcohol do you have on a typical day when you are drinking?: 1 or 2 3. How often do you have six or more drinks on one occasion?: Never Total Score: 0 CHAD-7 AMB Questionnaire CHAD-7 Date CHAD - 7 assessed: 09/14/25 Source: Developed by Drs. Yariel Warren, Fiorella Espana, Xavier Hassan and colleagues, with an educational laura from [employer]. Review of Systems Narrative - Constitutional: Denies fever or vomiting. - Neurologic: Reports occasional dizziness on standing up quickly. - Gastrointestinal: Reports severe diarrhea for the past 2 days, decreased appetite, and difficulty eating. - Integumentary: Reports hair breakage, a bald spot, increased facial hair growth (hirsutism), and easy bruising. Physical exam (Primary Care) Vital Signs: Last Vital Signs Temp 97.9 F 10/26/25 09:22 BP 130/76 10/26/25 09:22 BMI result Body Mass Index 25.4 GENERAL Well developed, Well nourished, in no apparent distress HEENT Head-Normocephalic Neck- Supple, No lymphadenopathy, thyroid WNL RESPIRATORY Normal I:E, Clear to auscultation CARDIOVASCULAR Regular, rate and rhythm, No murmurs or rubs NEUROLOGICAL Gait normal PSYCHIATRIC Oriented to person, place and time Mood and affect WNL Appearance WNL Speech WNL Thought processes WNL Tobacco/Smoking Status: Tobacco use Status Tobacco use date assessed 10/26/25 10/26/25 09:23 Patient Tobacco Use Status Never used Tobacco 10/26/25 09:23 e-Cigarette/Vaping Use Never Used 10/26/25 09:23 Thrive Assessment: Date of Thrive Assessment Date Thrive assessed 09/14/25 10/26/25 09:23 Results Reviewed Results Reviewed: - Hemoglobin A1c: 6.4% - Iron level: Normal - Vitamin B12 level: Normal Coding Level of Care Code Established Pt Est Pt Level 4 (44826) Established Pt Est Pt Prev Care >65y(42336) Patient Type Established Diagnoses Type 2 diabetes mellitus without complication, without long-term current use of insulin E11.9 Diabetes mellitus type: type 2 Diabetes mellitus 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 insulin use: without [facility] use Diabetes mellitus complication status: without complication Hair loss L65.9 Time Spent (min) 35 Comment Time was spent on lab review, H&P, Patient education and follow up Assessment & Plan Assessment & Plan (1) Diabetes: Comment: A1C 6.4% Code(s): E11.9 - Type 2 diabetes mellitus without complications Category: Medical Qualifiers: Diabetes mellitus type: type 2 Diabetes mellitus [facility] insulin use: without [facility] use Diabetes mellitus complication status: without complication Qualified Code(s): E11.9 - Type 2 diabetes mellitus without complications Plan: The patient's A1c is well-controlled at 6.4%. She recently started Mounjaro 10 mg and is experiencing side effects of decreased appetite and severe diarrhea. The plan is to continue the current dose of Mounjaro 10 mg for another couple of months to allow her body to adjust to the medication, which may alleviate the diarrhea. We will re-evaluate her tolerance and glycemic control at the next follow-up. We discussed that GLP-1 agonists are typically continued long-term, but we can consider dose reduction in the future once weight loss goals are met, provided her A1c remains controlled. The patient should monitor her fasting blood sugar once a week. (2) Hair loss: Code(s): L65.9 - Nonscarring hair loss, unspecified Category: Medical Plan: The patient reports ongoing hair loss and increased facial hair growth despite using a minoxidil/biotin supplement. Her HERS provider recommended a trial of topical 0.3% finasteride and 6% minoxidil spray. This was discussed as a reasonable option to try, especially since her dermatology appointment is not until February. The hormonal changes of menopause, leading to relative androgen dominance, were discussed as a likely contributor to both the hair loss and facial hair growth. Labs including iron and B12 were normal. Plan I discussed the patient's concerns regarding hair loss, facial hair growth, and her diabetes management. Regarding her hair issues, I explained that hormonal changes related to menopause are a likely cause, leading to a state of relative androgen dominance which can cause both scalp hair thinning and increased facial hair. I agreed with the recommendation from her online provider to try the topical finasteride and minoxidil spray while she awaits her dermatology appointment. For her diabetes, I acknowledged her recent A1c of 6.4% is at goal. I explained that the diarrhea she is experiencing is a known side effect of Mounjaro and often improves as the body adjusts to a stable dose. We will continue the 10 mg dose for another couple of months to assess for improvement. I also explained the benefits of GLP-1 agonists, such as only needing a weekly injection and a lower risk of hypoglycemia compared to other diabetes medications, as it works primarily when she eats. We discussed that these medications are usually continued long-term for both diabetes control and weight maintenance, with the potential for dose reduction in the future. I instructed her to monitor her fasting blood sugar once a week. I confirmed we would discontinue sertraline from her active medication list. We will have a follow-up visit in three months. Medications: Refilled tirzepatide (Mounjaro) 10 mg (0.5 mL) subcut QWEEK 2 mL 3RF for diabetes and weight loss Patient Instructions: - Continue taking Mounjaro 10 mg once a week. - The diarrhea you are experiencing is a common side effect and may improve over time as your body gets used to the medication. - You may try the topical 0.3% finasteride and 6% minoxidil spray for your hair loss as was recommended to you. - Check your blood sugar first thing in the morning before eating (fasting) about once a week. - Your goal for fasting blood sugar is between 80 and 120. - Contact your pharmacy to request refills when you need them. - You can ask your pharmacy if they will accept your used syringes for disposal. - Schedule a follow-up appointment for three months from now
== END 2025-10-26 10:01 | disposition home or self-care (01) ==
LOC: HO.HMCHD 09:12
PROVIDERS: PCP Physician Assistant Medical; Visit Provider Physician Assistant Medical
DX: E11.9 Type 2 diabetes mellitus without complications (principal); L65.9 Nonscarring hair loss, unspecified